=== PATIENT | female | born 1955 | race Caucasian/White ===

== ENCOUNTER → 2018-09-24 07:24 | Outpatient (CLI) | payer OTHER, SELFPAY ==
[2018-09-24 09:55] LABS: Add Manual Diff / Slide Review NO; Basophils Absolute Auto 0 /uL (0-100); Basophils Percent Auto 0.6 % (0-2); Eosinophils Absolute Auto 200 /uL (0-450); Eosinophils Percent Auto 4.6 % (2-4); Hematocrit 40.3 % (36-46); Hemoglobin 13.7 g/dL (12.0-16.0); Lymphocytes Absolute Auto 1600 /uL (1100-4500); Lymphocytes Percent Auto 32.1 % (25-40); Mean Corpuscular Hemoglobin 30.2 PG (26-34); Mean Corpuscular Volume 88.9 fL (80-100); Monocytes Absolute Auto 400 /uL (0-900); Monocytes Percent Auto 7.4 % (3-14); Neutrophils Absolute Auto 2800 /uL (1500-7000); Neutrophils Percent Auto 55.3 % (50-75); Platelet Count 224 X10^3/uL (150-400); Red Blood Cell Count 4.53 X10^6/uL (4.0-5.2); White Blood Cell Count 5.1 X10^3/uL (4.5-11.0)
[2018-09-24 10:37] LABS: Alanine Aminotransferase 24 IU/L (9-52); Albumin 4.3 g/dL (3.5-5.0); Albumin Globulin Ratio 1.7 (1.0-2.8); Alkaline Phosphatase 94 U/L (38-126); Aspartate Aminotransferase 24 IU/L (14-36); Bilirubin Total 0.6 mg/dL (0.2-1.3); Blood Urea Nitrogen 14 mg/dL (7-17); Calcium 9.6 mg/dL (8.4-10.2); Carbon Dioxide 28 mmol/L (22-32); Chloride 104 mmol/L (98-107); Cholesterol 217 mg/dL (140-199); Estimated Glomerular Filt Rate > 60.0 mL/min (>60); Globulin 2.6 g/dL (1.7-4.1); Glucose 78 mg/dL (80-110); HDL Cholesterol 43 mg/dL (40-60); HEMOLYSIS < 15 (0-50); LDL Cholesterol Calculated 148 mg/dL (<100); Potassium 4.2 mmol/L (3.4-5.1); Sodium 139 mmol/L (137-145); Total Protein 6.9 g/dL (6.3-8.2); Triglycerides 129 mg/dL (35-150)
[2018-09-24 10:54] LABS: TSH w/ Reflex to FT4 1.48 uIU/mL (0.47-4.68)
== END ==
PROVIDERS: Nurse Practitioner; PCP Family Medicine; Visit Provider Family Medicine
DX: R25.2 Cramp and spasm (principal)
CPT/HCPCS: 36415; 80053; 80061; 84443; 85025

== ENCOUNTER 2019-02-21 15:25 | Emergency (ER) | payer OTHER, SELFPAY ==
[2019-02-21 15:43] VITALS: BP 159/93; PULSE 85; RESP 18; TEMP 36.9; O2SAT 98; BMI 28.3
--- NOTE | 2019-02-21 15:46 | DI.RAD.S_ITS ---
PROCEDURE: XR WRIST LT MIN 3V INDICATIONS: fall with hand /wrist pain TECHNIQUE: 4 views of the wrist were acquired. COMPARISON: None. FINDINGS: Bones: No fractures or dislocations. No suspicious bony lesions. First CMC and triscaphe joint degeneration Soft tissues: No suspicious soft tissue calcifications. IMPRESSION: No fracture. If the patient's symptoms do not improve recommend followup radiographs in 10 days to assess for healing sclerosis/occult injury. Degenerative changes as above. Dictated by: Seamus Taylor M.D. on 02/21/2019 at 16:30 Approved by: Seamus Taylor M.D. on 02/21/2019 at 16:32
--- NOTE | 2019-02-21 15:46 | DI.RAD.S_ITS ---
PROCEDURE: XR HAND LT MIN 3V INDICATIONS: fall with hand /wrist pain TECHNIQUE: 3 views of the hand(s) acquired. COMPARISON: None. FINDINGS: Bones: No fractures or dislocations. Carpal bones are normally aligned. No suspicious bony lesions. First CMC and triscaphe joint degeneration. Prominent lucencies seen at the DIP joint of the index finger. Diffuse interphalangeal joint degeneration. Soft tissues: No suspicious soft tissue calcifications. IMPRESSION: No fracture. Degenerative changes as above. Dictated by: Seamus Taylor M.D. on 02/21/2019 at 16:28 Approved by: Seamus Taylor M.D. on 02/21/2019 at 16:30
--- NOTE | 2019-02-21 17:50 | ED_ITS ---
HPI - Extremity Injury (Upper) <MISTI Castillo - Last Filed: 02/21/19 22:19> General Chief Complaint: Extremity Injury, Upper Stated Complaint: FALL LEFT ARM SORE PAIN Time Seen by Provider: 02/21/19 17:43 Source: patient Mode of arrival: ambulatory Limitations: no limitations History of Present Illness HPI narrative: 63-year-old female presents emergency department complaining of 5/10 left hand pain with swelling and bruising. Patient states she fell on an outstretched hand. She describes the pain as dull aching pain worse with movement and better with immobilization. She states the pain is localized to the left thumb. She denies fevers, head trauma, shortness of breath, chest pain, elbow pain, shoulder pain, abdominal pain, nausea, vomiting, or loss of consciousness. Related Data Home Medications Medication Instructions Recorded Confirmed omeprazole 40 mg capsule,delayed 20 mg PO .QOD tab 09/23/18 10/11/18 release Previous Rx's Medication Instructions Recorded atorvastatin 10 mg tablet 10 mg PO BEDTIME #30 tab 09/26/18 losartan 100 mg tablet 100 mg PO Q DAY #90 tab 10/11/18 varicella-zoster gE-AS01B (PF) 50 0.5 ml IM ONCE #1 each 10/11/18 mcg/0.5 mL IM susp, kit Allergies Allergy/AdvReac Type Severity Reaction Status Date / Time Penicillins [PENICILLINS] Allergy Unknown Verified 02/21/19 15:43 Review of Systems <MISTI Castillo - Last Filed: 02/21/19 22:19> Review of Systems Narrative: REVIEW OF SYSTEMS: GENERAL: Denies fever or chills. HENT: No head trauma. EYES: No double vision or vision loss. CARDIOVASCULAR: No chest pain or syncope. RESPIRATORY: No shortness of breath or cough. GASTROINTESTINAL: No nausea, vomiting, diarrhea, or constipation. GENITOURINARY: No flank pain or dysuria. MUSCULOSKELETAL: Complains of wrist pain, see HPI. INTEGUMENTARY: No rash, lesions, or pruritus. NEURO: No numbness, tingling. PSYCH: No behavior or mood changes. PFSH <MISTI Castillo - Last Filed: 02/21/19 22:19> Medical History Back problem (Chronic ~2016) Carpal tunnel syndrome (Chronic ~1993) Foot pain (Chronic ~2005) Migraines (Chronic) Surgical History Anesthesia (Resolved) Status post tonsillectomy and adenoidectomy (~1972) Family History (Updated 02/19/18 @ 21:57 by Maribel Alex) Brother Age: 62 Osteoarthritis Brother Age: 61 Arthritis Mother Age: 88 Arthritis Congestive heart failure Heart disease Sister Age: 66 Lupus Sister Age: 63 Osteoarthritis Father Cancer Social History Smoking Status: Never smoker Family History Brother Age: 62 Osteoarthritis Brother Age: 61 Arthritis Mother Age: 88 Arthritis Congestive heart failure Heart disease Sister Age: 66 Lupus Sister Age: 63 Osteoarthritis Father Cancer Social History Smoking Status: Never smoker Exam <MISTI Castillo - Last Filed: 02/21/19 22:19> Initial Vital Signs Initial Vital Signs: Vital Signs Temperature 98.4 F 02/21/19 15:43 Pulse Rate 85 02/21/19 15:43 Respiratory Rate 18 02/21/19 15:43 Blood Pressure 159/93 H 02/21/19 15:43 Pulse Oximetry 98 02/21/19 15:43 PHYSICAL EXAMINATION: GENERAL: Well groomed, alert, and cooperative. Answers questions promptly and appropriately. Vital signs noted. HENT: Normocephalic, atraumatic. EYES: Symmetrical, sclera white, no periorbital swelling. CARDIOVASCULAR: S1 and S2 sounds normal. Regular rate and rhythm, no murmurs, clicks, or bruits. No pedal edema. RESPIRATORY: Normal respiratory rate, trachea midline, airway patent. No stridor, nasal flaring or accessory muscle use. Lungs are clear in all araya. MUSCULOSKELETAL: Tenderness to palpation of proximal thumb and radial-palmar aspect of hand. Ecchymosis is noted to palmar aspect of proximal thumb and small ecchymotic area of left wrist. No erythema, no laceration. Equal underwater photographer strength bilaterally Full range of motion of the wrist. No tenderness to shoulder or elbows. Normal gait and coordination. Equal tone and mass bilaterally. No spinal tenderness or deformities. EXTREMITIES: CMS intact. No pedal edema. SKIN: Warm, dry, soft, appropriate color for ethnicity. No lesions, rashes, or wounds. NEURO: Alert and Oriented X 3. No sensory deficits. PSYCH: Appropriate affect and mood. <Tamia Yost DO - Last Filed: 02/23/19 19:22> Initial Vital Signs Initial Vital Signs: Vital Signs Temperature 98.4 F 02/21/19 15:43 Pulse Rate 85 02/21/19 15:43 Respiratory Rate 18 02/21/19 15:43 Blood Pressure 159/93 H 02/21/19 15:43 Pulse Oximetry 98 02/21/19 15:43 Procedures <MISTI Castillo - Last Filed: 02/21/19 22:19> Orthopedic Splinting/Casting Injury #1: Side: left Upper Extremity Injury Location: wrist Upper Extremity Immobilizer: wrist splint Post splinting neuro exam: intact Post splinting vascular exam: intact Placed by: Nursing Course <MISTI Castillo - Last Filed: 02/21/19 22:19> Course Course Narrative: A Velcro splint was applied to left wrist. Orders Ordered: ED Orders 02/21/19 15:46 XR hand LT min 3V Stat XR wrist LT min 3V Stat Vital Signs Vital signs: Vital Signs - 8 hr 02/21/19 15:43 02/21/19 18:10 Temperature 98.4 F Pulse Rate 85 85 Respiratory Rate 18 18 Blood Pressure 159/93 H 140/80 Pulse Oximetry 98 99 <Tamia Yost DO - Last Filed: 02/23/19 19:22> Orders Ordered: ED Orders 02/21/19 15:46 XR hand LT min 3V Stat XR wrist LT min 3V Stat Vital Signs Vital signs: Vital Signs - 8 hr 02/21/19 15:43 02/21/19 18:10 Temperature 98.4 F Pulse Rate 85 85 Respiratory Rate 18 18 Blood Pressure 159/93 H 140/80 Pulse Oximetry 98 99 MDM - Extremity Injury (Upper) <MISTI Castillo - Last Filed: 02/21/19 22:19> Medical Records Attestation: I reviewed the patient's medical records. Lab Data Attestation: I reviewed the patient's lab results. Imaging Data L wrist pain: Radiologist's impression: [address] [address] XRay Report Signed Patient: Christy Stallworth R#: [id number] : [id number]:[id number] Age/Sex: 63 / FDate of Service: 02/21/19 Loc: ED Accession Number: [id number] Procedure: XR wrist LT min 3V Ordering Provider: Tamia Yost D.O. PROCEDURE: XR WRIST LT MIN 3V INDICATIONS: fall with hand /wrist pain TECHNIQUE: 4 views of the wrist were acquired. COMPARISON: None. FINDINGS: Bones: No fractures or dislocations. No suspicious bony lesions. First CMC and triscaphe joint degeneration Soft tissues: No suspicious soft tissue calcifications. IMPRESSION: No fracture. If the patient's symptoms do not improve recommend followup radiographs in 10 days to assess for healing sclerosis/occult injury. Degenerative changes as above. Dictated by: Seamus Taylor M.D. on 02/21/2019 at 16:30 Approved by: Seamus Taylor M.D. on 02/21/2019 at 16:32 L Hand pain: Radiologist's impression: [address] [place] [id number] XRay Report Signed Patient: Christy Stallworth R#: [id number] : [id number]:[id number] Age/Sex: 63 / FDate of Service: 02/21/19 Loc: ED Accession Number: [id number] Procedure: XR hand LT min 3V Ordering Provider: Tamia Yost D.O. PROCEDURE: XR HAND LT MIN 3V INDICATIONS: fall with hand /wrist pain TECHNIQUE: 3 views of the hand(s) acquired. COMPARISON: None. FINDINGS: Bones: No fractures or dislocations. Carpal bones are normally aligned. No suspicious bony lesions. First CMC and triscaphe joint degeneration. Prominent lucencies seen at the DIP joint of the index finger. Diffuse interphalangeal joint degeneration. Soft tissues: No suspicious soft tissue calcifications. IMPRESSION: No fracture. Degenerative changes as above. Dictated by: Seamus Taylor M.D. on 02/21/2019 at 16:28 Approved by: Seamus Taylor M.D. on 02/21/2019 at 16:30 MDM Narrative Medical decision making narrative: Differential includes hand sprain (mechanism of injury, ecchymosis, tenderness with palpation, pain relief with splinting), fracture (less likely due to negative x-ray), and contusion as evidence by exam. Patient was encouraged to follow up within 1-2 weeks for re-evaluation of symptoms continue. Return precautions were given. Discharge Plan Departure Patient Disposition: Home Clinical Impression: Acute wrist pain Qualifiers: Laterality: left Qualified Code(s): M25.532 - Pain in left wrist Discharge Date/Time: 02/21/19 18:10 Instructions: DI for Wrist Sprain Activity Restrictions/Additional Instructions: Thank you for entrusting me with your care today. As discussed, your x-rays are negative for fractures. You may leave this splint in place for pain. Please remove this multiple times during the day and move your wrist around so it does not become stiff. Follow up with your primary care provider in the next 10-14 days for repeat x-ray. Return to the emergency department if you develop chest pain, shortness of breath, syncope, or other concerning symptoms. Prescriptions: No Action atorvastatin 10 mg tablet 10 mg PO BEDTIME Qty: 30 RF: 5 Shingrix (PF) 50 mcg/0.5 mL suspension for reconstitution 0.5 ml IM ONCE Qty: 1 RF: 0 losartan [Cozaar] 100 mg tablet 100 mg PO Q DAY Qty: 90 RF: 3 omeprazole 40 mg capsule,delayed release(DR/EC) 20 mg PO .QOD RF: 0 Referrals: Brandon Koehler MD [Primary Care Provider] -
[2019-02-21 18:10] VITALS: BP 140/80; PULSE 85; RESP 18; O2SAT 99
== END 2019-02-21 18:10 | disposition home or self-care (01) ==
PROVIDERS: Emergency Provider Nurse Practitioner; PCP Family Medicine
DX: M25.532 Pain in left wrist (principal); W19.XXXA Unspecified fall, initial encounter
CPT/HCPCS: 73110; 73130; 99282; 99283

== ENCOUNTER 2019-03-03 06:23 | Day surgery (SDC) | payer OTHER, SELFPAY ==
[2019-03-03] MEDS: SODIUM CHLORIDE 0.9% 1,000 ML 200 ML IV (07:15)
[2019-03-03 07:18] VITALS: BP 142/76; PULSE 77; RESP 14; TEMP 36.3; O2SAT 98; BMI 28.8
--- NOTE | 2019-03-03 07:36 | PM.HP.1 ---
History of Present Illness History of Present Illness Date Patient Seen: 03/03/19 Time Patient Seen: 07:36 Chief complaint: [id number] Narrative: Patient presents for colorectal screening. They had a previous colonoscopy 3 yrs ago significant for a polyp. On further history denies any recent gastrointestinal symptoms. No nausea, vomiting, abdominal pain, loss of appetite, unexplained weight loss, change in bowel habits, diarrhea, constipation, melena, hematochezia, or bright red blood per rectum. Patient History Medical History Arthritis (Acute) Back problem (Chronic ~2016) Carpal tunnel syndrome (Chronic ~1993) Foot pain (Chronic ~2005) Hypertension (Acute) Impaired vision (Acute) Migraines (Chronic) Surgical History Anesthesia (Resolved) History of colonoscopy (Acute) Status post tonsillectomy and adenoidectomy (~1972) Family History Brother Age: 62 Osteoarthritis Brother Age: 61 Arthritis Mother Age: 88 Arthritis Congestive heart failure Heart disease Sister Age: 66 Lupus Sister Age: 63 Osteoarthritis Father Cancer Social History household members: spouse Smoking Status: Never smoker Family & Social History Family History Brother Age: 62 Osteoarthritis Brother Age: 61 Arthritis Mother Age: 88 Arthritis Congestive heart failure Heart disease Sister Age: 66 Lupus Sister Age: 63 Osteoarthritis Father Cancer Social History: household members spouse Tobacco & Substance use: Smoking Status Never smoker Substance Use Type does not use Meds Home Medications and Allergies Home Medications Medication Instructions Recorded Confirmed Type losartan 100 mg tablet 100 mg PO Q DAY #90 tab 10/11/18 03/03/19 Rx varicella-zoster gE-AS01B (PF) 50 0.5 ml IM ONCE #1 each 10/11/18 Rx mcg/0.5 mL IM susp, kit Allergies Allergy/AdvReac Type Severity Reaction Status Date / Time Penicillins [PENICILLINS] Allergy Intermediate Hives Verified 03/03/19 07:09 Review of Systems Review of Systems ROS Unobtainable: All systems reviewed & are unremarkable except as noted in HPI and below Exam Vital Signs (past 8 hours): - 03/03/19 07:18 Temperature 97.3 F L Pulse Rate 77 Respiratory Rate 14 Blood Pressure 142/76 H Pulse Oximetry 98 Oxygen Delivery Method Room Air Narrative Exam Narrative: General-adult female no acute distress, well nourished HEENT-moist mucous membranes, no scleral icterus Neck-supple with full range of motion, no lymphadenopathy Chest- no labored respirations, clear to auscultation bilaterally Cardiac-regular rate and rhythm Abdomen-soft, nontender, non distended Extremities-no edema, warm well perfused Neurological-alert and oriented x 3. No focal deficits Skin-normal temperature and turgor, no rashes or ulcers Assessment & Plan Assessment and plan (1) Screening for colon cancer: Current visit: Yes Status: Acute Assessment & Plan narrative: Patient is requiring colorectal screening. Colonoscopy is recommended. Technical details were discussed. Risks, benefits, alternatives explained. Risks including but not limited to sedation, aspiration, bleeding, pain, missed lesion, incomplete examination, need for further radiographic studies, colonic perforation, need for major abdominal surgery, and all attendant risks major surgery were discussed at length. All questions were answered to their satisfaction, and they voiced understanding.
[2019-03-03] MEDS: MIDAZOLAM 5 MG/5 ML VIAL IV (08:20)
[2019-03-03] MEDS: fentaNYL 250 MCG/5 ML INJ IV (08:20)
[2019-03-03 08:30] VITALS: BP 99/47; PULSE 68; RESP 16; TEMP 36.6; O2SAT 95
--- NOTE | 2019-03-03 08:31 | PM.OP.ENDO ---
Operative Date/Time/Diagnoses Date of procedure: 03/03/19 Time of procedure: 08:31 Pre-op diagnosis: screening colonoscopy Post-op diagnosis: same Procedure & Clinicians Study performed: Colonoscopy Same procedure as scheduled: Yes Indications: 63-year-old female with a colonoscopy 3 years ago that demonstrated a polyp returns for screening colonoscopy Surgeon: Alonso Sharma Procedure Notes SCOAP/Timeout: Performed Procedure in detail: A digital rectal exam was performed that demonstrated external hemorrhoids no internal masses. The scope was carefully inserted into the rectum and advanced to the sigmoid colon. A significant amount of diverticular disease was here and I was unable to pass the adult endoscope. It was replaced with a pediatric colonoscope which was then navigated through the remainder of the colon. The ileocecal valve was reached. The scope was then slowly withdrawn. The colon was notable only for extensive diverticulosis through the right and left colon. There are no masses. The scope was retroflexed within the rectum and demonstrated grade 1 internal hemorrhoids. The scope was then removed Scope withdrawal time: 7 Sedation minutes: 27 Findings: diverticulosis Specimen(s): none sent Complications: none Impression: Diverticulosis Post-procedure Recommendations: Colonscopy in 10 years Disposition: same day surgery
[2019-03-03 08:35] VITALS: BP 102/52; PULSE 69; RESP 16; O2SAT 95
[2019-03-03 08:40] VITALS: BP 106/57; PULSE 68; RESP 16; O2SAT 96
[2019-03-03 08:44] VITALS: BP 116/64; PULSE 66; O2SAT 99
[2019-03-03 09:03] VITALS: BP 104/68; PULSE 69; RESP 16; TEMP 36.7
== END 2019-03-03 09:05 | disposition home or self-care (01) ==
PROVIDERS: PCP Family Medicine; Visit Provider Surgery
PROC: 0DJD8ZZ Inspection of Lower Intestinal Tract, Via Natural or Artificial Opening Endoscopic (ICD-10-PCS; CPT 45378; principal; 2019-03-03 07:45)
DX: Z86.010 Personal history of colon polyps (principal); K57.30 Diverticulosis of large intestine without perforation or abscess without bleeding; K64.0 First degree hemorrhoids
CPT/HCPCS: 45378; 99152; J2250; J3010

== ENCOUNTER → 2019-03-25 07:05 | Outpatient (CLI) | payer OTHER, SELFPAY ==
[2019-03-25 08:49] LABS: Hemoglobin A1C% w Est Avg Glu 5.2 % (4.0-6.0)
[2019-03-25 08:50] LABS: Add Manual Diff / Slide Review NO; Basophils Absolute Auto 0 /uL (0-100); Basophils Percent Auto 0.5 % (0-2); Eosinophils Absolute Auto 200 /uL (0-450); Eosinophils Percent Auto 4.2 % (2-4); Hematocrit 41.4 % (36-46); Hemoglobin 14.1 g/dL (12.0-16.0); Lymphocytes Absolute Auto 1600 /uL (1100-4500); Lymphocytes Percent Auto 27.7 % (25-40); Mean Corpuscular HGB Conc 34.1 % (30-36); Mean Corpuscular Hemoglobin 30.3 PG (26-34); Monocytes Absolute Auto 500 /uL (0-900); Monocytes Percent Auto 8.1 % (3-14); Neutrophils Absolute Auto 3400 /uL (1500-7000); Neutrophils Percent Auto 59.5 % (50-75); Platelet Count 221 X10^3/uL (150-400); Red Blood Cell Count 4.66 X10^6/uL (4.0-5.2); White Blood Cell Count 5.7 X10^3/uL (4.5-11.0)
[2019-03-25 08:52] LABS: Alanine Aminotransferase 248 IU/L (9-52); Albumin 4.6 g/dL (3.5-5.0); Albumin Globulin Ratio 1.6 (1.0-2.8); Alkaline Phosphatase 140 U/L (38-126); Aspartate Aminotransferase 68 IU/L (14-36); Bilirubin Total 0.9 mg/dL (0.2-1.3); Blood Urea Nitrogen 16 mg/dL (7-17); Calcium 9.8 mg/dL (8.4-10.2); Carbon Dioxide 29 mmol/L (22-32); Chloride 100 mmol/L (98-107); Cholesterol 209 mg/dL (140-199); Estimated Glomerular Filt Rate > 60.0 mL/min (>60); Globulin 2.8 g/dL (1.7-4.1); Glucose 88 mg/dL (80-110); HDL Cholesterol 45 mg/dL (40-60); HEMOLYSIS < 15 (0-50); LDL Cholesterol Calculated 139 mg/dL (<100); Potassium 4.1 mmol/L (3.4-5.1); Sodium 141 mmol/L (137-145); Total Protein 7.4 g/dL (6.3-8.2); Triglycerides 123 mg/dL (35-150)
[2019-03-25 09:39] LABS: Thyroid Stimulating Hormone 2.32 uIU/mL (0.47-4.68)
== END ==
PROVIDERS: PCP Family Medicine; Visit Provider Family Medicine
DX: E13.9 Other specified diabetes mellitus without complications (principal); E78.5 Hyperlipidemia, unspecified; I10 Essential (primary) hypertension
CPT/HCPCS: 36415; 80053; 80061; 83036; 84443; 85025

== ENCOUNTER → 2019-03-26 08:30 | Outpatient (CLI) | payer OTHER, SELFPAY ==
--- NOTE | 2019-03-26 08:31 | DI.US.S_ITS ---
PROCEDURE: US ABDOMEN COMPLETE INDICATIONS: ABNORMAL LIVER FUNCTION TESTS TECHNIQUE: Real-time scanning was performed of the abdominal and retroperitoneal organs, with image documentation. COMPARISON: [facility], US, ABDOMEN COMPLETE, 05/16/2017, 15:48. FINDINGS: Liver: Liver is diffusely increased in echogenicity. No focal hepatic abnormalities identified. Normal hepatic size. Gallbladder: 1.2 cm mobile gallstone and gallbladder wall is normal at 2 mm Biliary ducts: Intrahepatic bile ducts are non-dilated. Extrahepatic bile duct caliber measures 5.0 mm. Normal is 6-7 mm or less in diameter, or 10 mm or less post-cholecystectomy. Pancreas: Visualized portions of the pancreas are sonographically normal. Spleen: Spleen is normal in size and homogeneous in echotexture. Kidneys: Kidneys are normal in size and echotexture. Right kidney measures 10.9 cm long; left kidney measures 10.4 cm long. No hydronephrosis or nephrolithiasis. No solid masses. Aorta: Visualized aorta is normal in caliber at less than 3 cm. Iliacs: Proximal common iliac arteries are normal in caliber at less than 2.5 cm. IVC: Intrahepatic inferior vena cava is patent. Miscellaneous: No free abdominal fluid. IMPRESSION: 1. Mildly increased hepatic echogenicity noted possibly related to hepatic steatosis but other sources of hepatocellular disease cannot be excluded. Recommend clinical correlation. 2. Cholelithiasis without acute cholecystitis. Dictated by: Teddy TEMPLETON Interpreted: Gaetano Medrano MD on 03/26/2019 at 10:39 Approved by: Gaetano Medrano M.D. on 03/26/2019 at 13:06
== END ==
PROVIDERS: PCP Family Medicine; Visit Provider Family Medicine
DX: R94.5 Abnormal results of liver function studies (principal); K80.20 Calculus of gallbladder without cholecystitis without obstruction
CPT/HCPCS: 76700

== ENCOUNTER → 2019-03-28 12:13 | Outpatient (CLI) | payer OTHER, SELFPAY ==
[2019-03-28 14:11] LABS: Alanine Aminotransferase 121 IU/L (9-52); Albumin 4.6 g/dL (3.5-5.0); Albumin Globulin Ratio 1.8 (1.0-2.8); Alkaline Phosphatase 125 U/L (38-126); Amylase 60 U/L (30-110); Aspartate Aminotransferase 31 IU/L (14-36); Bilirubin Total 0.7 mg/dL (0.2-1.3); Bilirubin Unconjugated 0.6 mg/dL (0.0-1.1); Globulin 2.6 g/dL (1.7-4.1); HEMOLYSIS < 15 (0-50); Lipase 89 U/L (23-300); Total Protein 7.2 g/dL (6.3-8.2)
[2019-04-01 14:41] LABS: Urea Breath Test >18YRS NOT DETECTED
[2019-04-02 08:23] LABS: Hepatitis A Antibody IgM NONREACTIVE; Hepatitis Acute Panel Interp 0.02; Hepatitis B Core Antibody IgM NONREACTIVE; Hepatitis B Surface Antigen NONREACTIVE; Hepatitis C Antibody NONREACTIVE
== END ==
PROVIDERS: PCP Family Medicine; Visit Provider Family Medicine
DX: R94.5 Abnormal results of liver function studies (principal)
CPT/HCPCS: 36415; 80074; 80076; 82150; 83013; 83690

== ENCOUNTER 2019-05-06 12:41 | Day surgery (SDC) | payer OTHER, SELFPAY ==
--- NOTE | 2019-05-06 | PATH_ITS ---
[facility] Accession Number: [id number] . 01 Material submitted: . PART A: duodenum - DUODENAL BIOPSIES PART B: gastrointestinal site - GASTRIC ANTRUM BIOPSIES PART C: gastrointestinal site - GASTRIC ULCER BIOPSY PART D: esophagus - DISTAL ESOPHAGUS BIOPSIES PART E: esophagus - MID-ESOPHAGUS BIOPSIES . 02 Diagnosis: A. Duodenum, Biopsies: Duodenal mucosa with no diagnostic abnormality. Negative for active inflammation, features of sprue, dysplasia, or malignancy. . B. Gastric Antrum, Biopsies: Gastric antral mucosa with mild chronic inflammation and features of reactive gastropathy. Negative for Helicobacter organisms by immunohistochemistry. Negative for intestinal metaplasia. Negative for dysplasia and malignancy. . C. Gastric Ulcer, Biopsy: Gastric body mucosa with mild chronic inflammation; please see comment. Negative for Helicobacter organisms by immunohistochemistry. Negative for intestinal metaplasia. Negative for dysplasia or malignancy. Additional step sections examined. . D-E: Distal, Mid Esophagus, Biopsies: Squamous mucosa with no diagnostic abnormality. Intraepithelial eosinophils are not increased. Negative for dysplasia and malignancy. [facility] 05/09/2019 1541 Local . 02 Comment: Part C: The endoscopic impression of a gastric ulcer is noted; however, there are no histologic features which correlate with that impression. Additional deeper levels are examined. . 02 Electronically signed: . Miles Lacey MD, PhD, Pathologist NPI- [id number] . 01 Gross description: . Part A: DUODENAL BIOPSIES: Received in formalin is 1 fragment(s) of zuniga, soft tissue measuring 0.3 x 0.2 x 0.2 cm submitted entirely in 1 cassette(s) Part B: GASTRIC ANTRUM BIOPSIES: Received in formalin are 2 fragment(s) of zuniga, soft tissue measuring 0.1 x 0.1 x 0.1 cm to 0.2 x 0.1 x 0.1 cm submitted entirely in 1 cassette(s) Part C: GASTRIC ULCER BIOPSY: Received in formalin are 2 fragment(s) of zuniga, soft tissue measuring 0.1 x 0.1 x 0.1 cm to 0.2 x 0.1 x 0.1 cm submitted entirely in 1 cassette(s) Part D: DISTAL ESOPHAGUS BIOPSIES: Received in formalin are 2 fragment(s) of zuniga, soft tissue measuring 0.2 x 0.2 x 0.1 cm to 0.3 x 0.2 x 0.2 cm submitted entirely in 1 cassette(s) Part E: MID-ESOPHAGUS BIOPSIES: Received in formalin is 1 fragment(s) of zuniga, soft tissue measuring 0.3 x 0.1 x 0.1 cm submitted entirely in 1 cassette(s) /[facility] 05/06/2019 2117 Local . 02 Microscopic: . Part B: An immunohistochemical stain is performed to evaluate for Helicobacter organisms, and is negative. A control stain shows appropriate reactivity. . Part C: An immunohistochemical stain is performed to evaluate for Helicobacter organisms, and is negative. A control stain shows appropriate reactivity. . * This test was developed and its performance characteristics determined by [employer]. It has not been cleared or approved by the U.S. Food and Drug Administration. The FDA has determined that such clearance or approval is not necessary. This test is used for clinical purposes. It should not be regarded as investigational or for research. . 02 Pathologist provided ICD-10: K21.9, K29.70 . 02 CPT . 580947, 780331, 967204, 426076, 979168, [id number] Performed at: 01 [facility] [address] [facility], [place], [place] [id number] MD Chirag Kim MD Phone: [phone] Performed at: 02 [facility] [address] [place], [place] [id number] MD Mag Bernard MD Phone: [phone]
[2019-05-06 13:03] VITALS: BP 154/80; PULSE 76; RESP 15; TEMP 36.3; O2SAT 99
[2019-05-06 13:04] VITALS: BMI 28.5
[2019-05-06] MEDS: SODIUM CHLORIDE 0.9% 1,000 ML 200 ML IV (13:19)
--- NOTE | 2019-05-06 13:58 | PM.PREOP ---
Pre-operative Note Interval Note History & Physical reviewed/Exam performed by Physician: Yes Changes to H&P: No ASA Class (for procedural sedation): II
[2019-05-06] MEDS: MIDAZOLAM 5 MG/5 ML VIAL IV (14:18)
[2019-05-06] MEDS: fentaNYL 250 MCG/5 ML INJ IV (14:18)
--- NOTE | 2019-05-06 14:30 | PM.OP.ENDO ---
Operative Date/Time/Diagnoses Date of procedure: 05/06/19 Time of procedure: 14:30 Pre-op diagnosis: Early satiety, abdominal pain, reflux symptoms Post-op diagnosis: other (Multiple shallow gastric ulcers, low-grade esophagitis) Procedure & Clinicians Study performed: Esophagogastric duodenoscopy with cold forceps biopsies of duodenum, stomach, gastric ulcer, GE junction, and esophagus Same procedure as scheduled: Yes Indications: Epigastric pain, early satiety, Surgeon: Kaitlynn Chopra Procedure Notes SCOAP/Timeout: Performed Procedure in detail: The patient was brought to the room and placed in left lateral decubitus position with all bony prominences padded. A time-out was performed and then the patient was given procedural sedation starting with [4] mg of Versed and [100] mcg of fentanyl. Vitals were monitored throughout the procedure and remained stable. A bite block was placed. Once adequately sedated the procedure was begun. A gastroscope was passed through the bite block and over the tongue, and easily passed into the esophagus without incident. A tubular view was gained of the esophagus and the scope was passed down the esophagus and into the stomach in the usual fashion. In the stomach moderate erosions consistent with healing ulcers in the setting of gastritis were seen along the wall of the mid stomach and antrum. The scope was popped through the pylorus and into the 1st part of the duodenum, and flexed around the corner into the 2nd part of the duodenum. The duodenum appeared normal without any ulcers or erosions, or any duodenitis. Biopsies were taken in the 1st and 2nd part of the duodenum. The scope was then retracted back into the stomach and biopsies were taken of the gastric erosions and antral gastritis. The scope was then retroflexed and a Hill grade 4 hiatal hernia was seen. The scope was then retracted back into the esophagus and the Z-line was seen at about 35 cm from the incisors. Biopsies were taken in the distal esophagus. There was evidence of some mild esophagitis seen in the lower and mid esophagus and biopsies were taken there is well. The scope was then withdrawn from the esophagus through the mouth without incident, bite block was removed, and the patient was awakened from anesthesia and transferred to the postanesthesia care unit in stable condition. Findings: gastric ulcer (Multiple, small, healing, without visible vessel or bleeding), gastritis (Moderate) and hiatal hernia (Hill grade 4) Specimen(s): other (Biopsies of duodenal mucosa, gastric antrum, gastric ulcer, distal esophagus, and midesophagus) Complications: none Post-procedure Recommendations: Other recommendation (Follow-up depending on pathology results, double-dose PPI) Follow up: as needed Disposition: PACU
[2019-05-06 14:34] VITALS: PULSE 76; RESP 22; TEMP 36.4; O2SAT 97
[2019-05-06 14:39] VITALS: BP 140/73; PULSE 77; RESP 20; O2SAT 95
[2019-05-06 14:44] VITALS: BP 139/75; PULSE 77; RESP 20; O2SAT 94
[2019-05-06 14:48] VITALS: BP 127/66; PULSE 75; RESP 22; TEMP 36.3; O2SAT 98
[2019-05-06 15:04] VITALS: BP 143/80; PULSE 69; RESP 20; TEMP 36.2; O2SAT 95
== END 2019-05-06 15:08 | disposition home or self-care (01) ==
PROVIDERS: Family Provider Family Medicine; PCP Family Medicine; Visit Provider Surgery
PROC: 0DJ08ZZ Inspection of Upper Intestinal Tract, Via Natural or Artificial Opening Endoscopic (ICD-10-PCS; CPT 43235; principal; 2019-05-06 14:00)
DX: K21.9 Gastro-esophageal reflux disease without esophagitis (principal); R68.81 Early satiety; I10 Essential (primary) hypertension; K29.70 Gastritis, unspecified, without bleeding; K22.10 Ulcer of esophagus without bleeding; K44.9 Diaphragmatic hernia without obstruction or gangrene
CPT/HCPCS: 43239; J2250; J3010

== ENCOUNTER → 2020-01-13 09:49 | Outpatient (CLI) | payer MEDICARE, SELFPAY ==
[2020-01-13 10:55] LABS: Add Manual Diff / Slide Review NO; Basophils Absolute Auto 0 /uL (0-100); Basophils Percent Auto 0.7 % (0-2); Eosinophils Absolute Auto 200 /uL (0-450); Eosinophils Percent Auto 3.1 % (2-4); Hematocrit 41.4 % (36-46); Hemoglobin 14.1 g/dL (12.0-16.0); Lymphocytes Absolute Auto 1400 /uL (1100-4500); Lymphocytes Percent Auto 20.5 % (25-40); Mean Corpuscular Hemoglobin 30.3 PG (26-34); Monocytes Absolute Auto 500 /uL (0-900); Monocytes Percent Auto 7.2 % (3-14); Neutrophils Absolute Auto 4500 /uL (1500-7000); Neutrophils Percent Auto 68.5 % (50-75); Platelet Count 217 X10^3/uL (150-400); Red Blood Cell Count 4.65 X10^6/uL (4.0-5.2); White Blood Cell Count 6.6 X10^3/uL (4.5-11.0)
[2020-01-13 11:14] LABS: Alanine Aminotransferase 58 IU/L (<35); Albumin 4.6 g/dL (3.5-5.0); Albumin Globulin Ratio 1.6 (1.0-2.8); Alkaline Phosphatase 132 U/L (38-126); Amylase 81 U/L (30-110); Aspartate Aminotransferase 49 IU/L (14-36); BUN Creatinine Ratio 18.5 (6-22); Bilirubin Total 0.7 mg/dL (0.2-1.3); Blood Urea Nitrogen 15 mg/dL (7-17); Calcium 10.2 mg/dL (8.4-10.2); Carbon Dioxide 27 mmol/L (22-32); Chloride 105 mmol/L (98-107); Estimated Glomerular Filt Rate > 60.0 mL/min (>60); Globulin 2.8 g/dL (1.7-4.1); Glucose 100 mg/dL (80-110); HEMOLYSIS < 15 (0-50); Lipase 100 U/L (23-300); Potassium 4.2 mmol/L (3.4-5.1); Sodium 139 mmol/L (137-145); Total Protein 7.4 g/dL (6.3-8.2)
[2020-01-13 11:44] LABS: TSH w/ Reflex to FT4 1.61 uIU/mL (0.47-4.68)
[2020-02-05 11:40] LABS: Urea Breath Test >18YRS NEGATIVE
== END ==
PROVIDERS: Family Provider Family Medicine; PCP Family Medicine; Referring Provider Nurse Practitioner; Visit Provider Nurse Practitioner
DX: Z13.29 Encounter for screening for other suspected endocrine disorder (principal); R10.9 Unspecified abdominal pain; R14.0 Abdominal distension (gaseous); I10 Essential (primary) hypertension; R10.11 Right upper quadrant pain
CPT/HCPCS: 36415; 80053; 82150; 83013; 83690; 84443; 85025

== ENCOUNTER → 2020-01-19 07:44 | Outpatient (CLI) | payer MEDICARE, SELFPAY ==
--- NOTE | 2020-01-19 07:46 | DI.US.S_ITS ---
PROCEDURE: US ABDOMEN COMPLETE INDICATIONS: RUQ PAIN TECHNIQUE: Real-time scanning was performed of the abdominal and retroperitoneal organs, with image documentation. COMPARISON: [facility], US, ABDOMEN COMPLETE, 05/16/2017, 15:48. [facility], US, US ABDOMEN COMPLETE, 03/26/2019, 8:54. FINDINGS: Liver: The liver demonstrates normal size. The liver demonstrates generalized increased echogenicity. This decreases ultrasound sensitivity for detection of hepatic masses. Gallbladder: A mobile gallstone is seen. The gallbladder wall is not thickened, measuring 3 mm or less. No specific pericholecystic fluid is seen. The sonographic Moore sign is negative. Biliary ducts: Intrahepatic bile ducts are non-dilated. Extrahepatic bile duct caliber measures 6 mm. Normal is 6-7 mm or less in diameter, or 10 mm or less post-cholecystectomy. Pancreas: Visualized portions of the pancreas are sonographically normal. Spleen: Spleen is normal in size and homogeneous in echotexture. Kidneys: Kidneys are normal in size and echotexture. Right kidney measures 11.2 cm long; left kidney measures 11.2 cm long. No hydronephrosis or nephrolithiasis. No solid masses. Aorta: Visualized aorta is normal in caliber at less than 3 cm. Iliacs: Proximal common iliac arteries are normal in caliber at less than 2.5 cm. IVC: Intrahepatic inferior vena cava is patent. Miscellaneous: No free abdominal fluid. IMPRESSION: A single mobile gallstone is seen, yet without additional sonographic signs of cholecystitis. Negative for biliary dilatation. Please correlate with physical examination findings, patient presentation, and laboratory values. The liver demonstrates increased echogenicity. This finding is nonspecific, yet it is most commonly attributed to fatty infiltration. Dictated by: Geronimo Kamara M.D. on 01/19/2020 at 8:36 Approved by: Geronimo Kamara M.D. on 01/19/2020 at 8:38
== END ==
PROVIDERS: Family Provider Family Medicine; PCP Family Medicine; Referring Provider Family Medicine; Visit Provider Nurse Practitioner
DX: R10.11 Right upper quadrant pain (principal); R14.0 Abdominal distension (gaseous); K80.20 Calculus of gallbladder without cholecystitis without obstruction
CPT/HCPCS: 76700

== ENCOUNTER → 2020-02-29 08:36 | Outpatient (CLI) | payer MEDICARE, SELFPAY ==
[2020-03-01 14:23] LABS: COVID19 Sendout Not Detected (Not Detect)
== END ==
PROVIDERS: PCP Family Medicine; Visit Provider Physician Assistant
DX: Z11.59 Encounter for screening for other viral diseases (principal)
CPT/HCPCS: 87635

== ENCOUNTER 2020-03-03 13:21 | Day surgery (SDC) | payer MEDICARE, SELFPAY ==
[2020-03-02 08:29] VITALS: BMI 31.6
[2020-03-03] VITALS (9 sets, daily range): BP systolic 99–144; BP diastolic 55–77; PULSE 78–88; RESP 16–25; TEMP 35.9–36.6; O2SAT 93–99; BMI 29.3
--- NOTE | 2020-03-03 | PATH_ITS ---
[facility] Accession Number: [id number] . 01 Material submitted: . gallbladder - GALLBLADDER AND CONTENTS . 01 Diagnosis: Gallbladder, Cholecystectomy: Cholelithiasis, chronic cholecystitis, and cholesterolosis. Negative for dysplasia and malignnacy. [facility] 03/08/2020 1608 Local . 01 Electronically signed: . Dianne Larios MD, Pathologist NPI- [id number] . 01 Gross description: . Received in formalin, labeled gallbladder, and consists of a 6.5 x 2.0 x 1.5 cm previously disrupted gallbladder with a 0.2 cm in diameter cystic duct. The serosa is zuniga-green and wrinkled. Opening reveals green viscous bile with a 1.0 x 0.8 x 0.8 cm green bosselated cholelith. The mucosa is zuniga-green and velvety with cholesterolosis. The wall thickness measures 0.1 cm. [employer] sections are submitted, to include the en face cystic duct margin (blue), body and fundus in cassette A1. ([id number]) /MRV 03/05/2020 1426 Local . 01 Pathologist provided ICD-10: K81.1 . 01 CPT . 850759 Performed at: [address] [facility], [place], [place] [id number] MD Chirag Kim MD Phone: [phone]
[2020-03-03] MEDS: Indocyanine 25 MG 25 EACH INJ (13:40)
[2020-03-03] MEDS: LACTATED RINGERS 1,000 ML 100 ML IV ×2 (13:47→16:22)
--- NOTE | 2020-03-03 14:02 | PM.PREOP ---
Pre-operative Note COVID-19 COVID-19 status: Negative Result date/Date tested (Pos, Neg/Pending): 02/29/20 Interval Note History & Physical reviewed/Exam performed by Physician: Yes Changes to H&P: No
[2020-03-03] MEDS: levoFLOXacin 500 MG/100 ML PIGGYBACK 100 MG IV (15:20)
--- NOTE | 2020-03-03 16:02 | SUR.OPER ---
Supine on padded OR bed, head on pillow, safety belt at thigh, left arm padded and tucked at side. Right arm secured on padded arm oard <90 degrees abduction. Legs uncrossed. Padded footboard in place. Tape over blanket to secure lower legs.
[2020-03-03] MEDS: BUPIVACAINE 0.25% W/ EPI 30 ML VIAL INJ (16:26)
--- NOTE | 2020-03-03 16:51 | PM.OP.1 ---
Operative Date/Time/Diagnoses Date of procedure: 03/03/20 Time of procedure: 16:51 Pre-op diagnosis: symptomatic cholelithiasis Post-op diagnosis: other (symptomatic cholelithiasis, chronic cholecystitis) Procedure & Clinicians Procedure: laparoscopic cholecystectomy with indocyanine cholangiography Same procedure as scheduled: Yes Indications: Symptomatic cholelithiasis Surgeon: Kaitlynn Chopra Anesthesia Type: General Operative Notes Findings: Thickened gall bladder, good critical view; soft narrow cystic duct Specimen(s): other (gall bladder and contents) Estimated Blood Loss (mL): 1 Procedure in detail: The patient was brought into the operating room and placed supine on the OR table. Sequential compression devices were placed on both legs and turned on. Appropriate perioperative antibiotics were given prior to the start of surgery. General anesthesia was induced the patient was intubated. The abdomen was prepped and draped in sterile fashion. Surgical time-out was conducted. Local anesthetic was injected under the skin just superior to the umbilicus and a 5 mm vertical incision was made at this site. The umbilical stalk was grasped with a Heide and elevated. A Veress needle was passed through the fascia into proper position. The position was tested with a saline drop test which was appropriate for intra-abdominal Veress needle placement. The abdomen was then insufflated in the usual fashion. Once insufflated to 15 mm Hg the Veress needle was removed and a 5 mm optical trocar was placed under direct vision using a 5 mm 30 degree scope. Once the camera was inside the abdomen I took a look around. There was no injury from port placement. Two additional ports were placed in a similar fashion in the right upper quadrant and a 10 mm port was placed in the epigastrium. Through the 2 lateral ports the gallbladder was grasped and elevated and the infundibulum was retracted laterally to the patient's right. This exposed the gallbladder hilum and allowed for dissection of the cystic duct and cystic artery. Omental adhesions were taken down from the gall bladder fundus. There was quite a bit of dense scar tissue throughout the gallbladder hilum. This required tedious careful dissection to avoid injury to the bile ducts. Indocyanine cholangiography was used to verify the duct structures and avoid injury to the common bile duct. Once the cystic duct and artery were completely dissected out and I was able to see liver behind and between both structures without any other structures in the way, giving us the critical view of safety. At this point I doubly clipped both structures on the patient's side and put a single clip on the gallbladder side of both the cystic duct and artery. Both structures were then divided with laparoscopic [place]. Following this the gallbladder was gradually dissected free from the liver. There was quite a bit of hypervascularity of the scar tissue between the gallbladder and the liver. Several small vessels had to be controlled with cautery. Once the gallbladder was entirely freed, it was placed inside an Endo-Catch bag and removed through the epigastric port site. I did have to slightly enlarge the epigastric site in order to get the gallbladder out. Once it was out and passed off to the back table I then took another look inside the abdomen. I suctioned clean any remaining blood or fluid on the lateral side of the liver and in the subhepatic space. There was no active bleeding or leaking of bile from the gallbladder fossa or from the clipped stumps of the cystic duct and artery. At this point the insufflation was removed from the abdomen and the epigastric port site was closed with 0 Vicryl suture in the fascia, 3 O Vicryl in the subcutaneous layers, and 4 Monocryl in the skin. The remaining port sites were closed with 4 Monocryl in the skin. Each port site was sealed with Dermabond. Local anesthetic was given at each of the port sites and in the fascia. This concluded the procedure. At this point the needle sponge and instrument counts were correct. The gallbladder was passed off the table for pathology. Patient was awakened from anesthesia and extubated. She was transferred to the postanesthesia care unit in stable condition. Complications: none Post-operative Condition: stable Disposition: PACU
[2020-03-03] MEDS: OXYCODONE IR 5 MG TABLET PO (17:32)
--- NOTE | 2020-03-03 18:22 | SUR.PHASEII ---
1815-Alll dc instructions given and pt verbalizes understanding. iv dcd site clear. Pt up and ambulating gait steady and slow, assisted to get dressed. Pt wanting to leave and go home, outside in parking lot.
--- NOTE | 2020-03-03 18:24 | SUR.PHASEII ---
1817-Pt dcd in stable condition with all belongings, no c/o.
== END 2020-03-03 18:17 | disposition home or self-care (01) ==
PROVIDERS: PCP Family Medicine; Referring Provider Family Medicine; Visit Provider Surgery
PROC: 0FT44ZZ Resection of Gallbladder, Percutaneous Endoscopic Approach (ICD-10-PCS; CPT 47562; principal; 2020-03-03 15:15)
DX: K80.10 Calculus of gallbladder with chronic cholecystitis without obstruction (principal); I10 Essential (primary) hypertension; K21.9 Gastro-esophageal reflux disease without esophagitis
CPT/HCPCS: 47563; J0330; J1100; J1956; J2405; J2704; J3010

== ENCOUNTER → 2020-05-04 06:51 | Outpatient (CLI) | payer MEDICARE, SELFPAY ==
[2020-05-04 07:47] LABS: Alanine Aminotransferase 27 IU/L (<35); Albumin 4.2 g/dL (3.5-5.0); Albumin Globulin Ratio 1.6 (1.0-2.8); Alkaline Phosphatase 119 U/L (38-126); Aspartate Aminotransferase 26 IU/L (14-36); BUN Creatinine Ratio 21.5 (6-22); Bilirubin Total 0.7 mg/dL (0.2-1.3); Blood Urea Nitrogen 17 mg/dL (7-17); Calcium 9.7 mg/dL (8.4-10.2); Carbon Dioxide 29 mmol/L (22-32); Chloride 107 mmol/L (98-107); Cholesterol 226 mg/dL (140-199); Estimated Glomerular Filt Rate > 60.0 mL/min (>60); Globulin 2.6 g/dL (1.7-4.1); Glucose 85 mg/dL (80-110); HDL Cholesterol 40 mg/dL (40-60); HEMOLYSIS < 15 (0-50); LDL Cholesterol Calculated 156 mg/dL (<100); Sodium 140 mmol/L (137-145); Total Protein 6.8 g/dL (6.3-8.2); Triglycerides 152 mg/dL (35-150)
[2020-05-04 16:06] LABS: Creatinine Urine Random 19.1 mg/dL
[2020-05-04 16:11] LABS: Microalbumin Urine Random < 0.6 mg/dL (0-1.6)
== END ==
PROVIDERS: PCP Family Medicine; Referring Provider Family Medicine; Visit Provider Family Medicine
DX: I10 Essential (primary) hypertension (principal)
CPT/HCPCS: 36415; 80053; 80061; 82043; 82570

== ENCOUNTER → 2020-06-24 12:24 | Outpatient (CLI) | payer MEDICARE, SELFPAY ==
--- NOTE | 2020-06-24 12:26 | DI.RAD.S_ITS ---
PROCEDURE: XR DEXA AXIAL SKELETON INDICATIONS: Screening COMPARISON: None. FINDINGS: This blank DEXA report has been sent in error by the PACS system. The correct and complete report will be forthcoming in 1-2 days. Thank you for your patience and understanding. Dictated by: Jackeline Tejada MD, PhD on 06/24/2020 at 14:37 Approved by: Jackeline Tejada MD, PhD on 06/24/2020 at 14:37
--- NOTE | 2020-06-24 12:26 | DI.MG.S_ITS ---
BILATERAL DIGITAL SCREENING MAMMOGRAM 3D/2D WITH CAD: 06/24/2020 CLINICAL: Routine screening. Comparison is made to exams dated: 11/20/2018 mammogram, 03/27/2017 mammogram, 12/01/2015 mammogram, and 04/19/2017 mammogram - [facility]. There are scattered fibroglandular elements in both breasts. Current study was also evaluated with a Computer Aided Detection (CAD) system. There are benign calcifications in both breasts. No significant masses, calcifications, or other findings are seen in either breast. There has been no significant interval change. IMPRESSION: BENIGN There is no mammographic evidence of malignancy. A 1 year screening mammogram is recommended. This exam was interpreted at Station ID: [id number]. NOTE: For mammograms, a report in lay terms will be sent to the patient. Approximately 15% of breast malignancies will not be visualized mammographically. In the management of a palpable breast mass, a negative mammogram must not discourage biopsy of a clinically suspicious lesion. Electronically Signed By: Nolberto dolan/carin:06/29/2020 08:25:31 letter sent: Normal Exam ACR BI-RADS Category 2: Benign Finding(s) 3342F
== END ==
PROVIDERS: PCP Family Medicine; Referring Provider Family Medicine; Visit Provider Family Medicine
DX: Z12.31 Encounter for screening mammogram for malignant neoplasm of breast (principal); Z78.0 Asymptomatic menopausal state; Z82.62 Family history of osteoporosis
CPT/HCPCS: 77063; 77067; 77080

== ENCOUNTER → 2020-11-05 08:20 | Outpatient (CLI) | payer MEDICARE, SELFPAY ==
[2020-11-05 09:31] LABS: Add Manual Diff / Slide Review NO; Basophils Absolute Auto 0 /uL (0-100); Basophils Percent Auto 0.6 % (0-2); Eosinophils Absolute Auto 600 /uL (0-450); Eosinophils Percent Auto 11.3 % (2-4); Hemoglobin 13.4 g/dL (12.0-16.0); Lymphocytes Absolute Auto 1600 /uL (1100-4500); Lymphocytes Percent Auto 30.8 % (25-40); Mean Corpuscular HGB Conc 33.5 % (30-36); Mean Corpuscular Hemoglobin 30.4 PG (26-34); Mean Corpuscular Volume 90.7 fL (80-100); Monocytes Absolute Auto 500 /uL (0-900); Monocytes Percent Auto 8.8 % (3-14); Neutrophils Absolute Auto 2600 /uL (1500-7000); Neutrophils Percent Auto 48.5 % (50-75); Platelet Count 209 X10^3/uL (150-400); Red Blood Cell Count 4.42 X10^6/uL (4.0-5.2); Red Cell Distribution Width 14.3 % (11.6-14.8); White Blood Cell Count 5.3 X10^3/uL (4.5-11.0)
[2020-11-05 09:50] LABS: Alanine Aminotransferase 22 IU/L (<35); Albumin 4.1 g/dL (3.5-5.0); Albumin Globulin Ratio 1.7 (1.0-2.8); Alkaline Phosphatase 117 U/L (38-126); Aspartate Aminotransferase 27 IU/L (14-36); Bilirubin Total 0.5 mg/dL (0.2-1.3); Blood Urea Nitrogen 15 mg/dL (7-17); Calcium 9.7 mg/dL (8.4-10.2); Carbon Dioxide 28 mmol/L (22-32); Chloride 106 mmol/L (98-107); Cholesterol 213 mg/dL (140-199); Estimated Glomerular Filt Rate > 60.0 mL/min (>60); Globulin 2.4 g/dL (1.7-4.1); Glucose 95 mg/dL (80-110); HDL Cholesterol 42 mg/dL (40-60); HEMOLYSIS < 15 (0-50); LDL Cholesterol Calculated 144 mg/dL (<100); Potassium 4.4 mmol/L (3.4-5.1); Sodium 139 mmol/L (137-145); Total Protein 6.5 g/dL (6.3-8.2); Triglycerides 134 mg/dL (35-150)
== END ==
PROVIDERS: PCP Family Medicine; Referring Provider Family Medicine; Visit Provider Family Medicine
DX: E78.2 Mixed hyperlipidemia (principal); K21.9 Gastro-esophageal reflux disease without esophagitis; R68.81 Early satiety; Z90.49 Acquired absence of other specified parts of digestive tract
CPT/HCPCS: 36415; 80053; 80061; 85025

== ENCOUNTER → 2021-07-28 10:09 | Outpatient (CLI) | payer MEDICARE, SELFPAY ==
--- NOTE | 2021-07-28 | DI.MG.S_ITS ---
BILATERAL DIGITAL SCREENING MAMMOGRAM 3D/2D WITH CAD: 07/28/2021 CLINICAL: Routine screening. Comparison is made to exams dated: 06/24/2020 mammogram - [facility], 11/20/2018 mammogram, and 04/19/2017 mammogram - [facility]. There are scattered fibroglandular elements in both breasts. Current study was also evaluated with a Computer Aided Detection (CAD) system. There are benign calcifications in both breasts. No significant masses, calcifications, or other findings are seen in either breast. There has been no significant interval change. IMPRESSION: BENIGN There is no mammographic evidence of malignancy. A 1 year screening mammogram is recommended. This exam was interpreted at Station ID: [id number]. NOTE: For mammograms, a report in lay terms will be sent to the patient. Approximately 15% of breast malignancies will not be visualized mammographically. In the management of a palpable breast mass, a negative mammogram must not discourage biopsy of a clinically suspicious lesion. Electronically Signed By: Chace Montoya M.D., jr/carin:07/28/2021 10:39:16 letter sent: Normal Exam ACR BI-RADS Category 2: Benign Finding(s) 3342F
== END ==
PROVIDERS: PCP Family Medicine; Referring Provider Family Medicine; Visit Provider Family Medicine
DX: Z12.31 Encounter for screening mammogram for malignant neoplasm of breast (principal)
CPT/HCPCS: 77063; 77067

== ENCOUNTER → 2021-11-08 08:08 | Outpatient (CLI) | payer MEDICARE, SELFPAY ==
--- NOTE | 2021-11-08 08:10 | DI.RAD.S_ITS ---
PROCEDURE: XR KNEE RT 3V INDICATIONS: knee pain TECHNIQUE: 3 views of the knee were acquired. COMPARISON: None. FINDINGS: Bones: No fractures or dislocations. No suspicious bony lesions. Mild to moderate lateral and patellofemoral compartment osteoarthritis. Mild medial compartment osteoarthritis. Soft tissues: No joint effusion. No suspicious soft tissue calcifications. IMPRESSION: Right knee tricompartmental osteoarthritis. Dictated by: Jackeline Tejada MD, PhD on 11/08/2021 at 11:13 Approved by: Jackeline Tejada MD, PhD on 11/08/2021 at 11:14
--- NOTE | 2021-11-08 08:10 | DI.RAD.S_ITS ---
PROCEDURE: XR KNEE LT 3V INDICATIONS: knee pain TECHNIQUE: 3 views of the knee were acquired. COMPARISON: None. FINDINGS: Bones: No fractures or dislocations. No suspicious bony lesions. Moderate osteoarthritic degenerative changes noted in all 3 compartments of the left knee Soft tissues: No joint effusion. No suspicious soft tissue calcifications. IMPRESSION: Moderate left knee tricompartmental osteoarthritis. Dictated by: Jackeline Tejada MD, PhD on 11/08/2021 at 11:14 Approved by: Jackeline Tejada MD, PhD on 11/08/2021 at 11:15
== END ==
PROVIDERS: PCP Family Medicine; Referring Provider Family Medicine; Visit Provider Family Medicine
DX: E78.5 Hyperlipidemia, unspecified (principal); I10 Essential (primary) hypertension; M25.561 Pain in right knee; M25.562 Pain in left knee; M17.0 Bilateral primary osteoarthritis of knee
CPT/HCPCS: 73562

== ENCOUNTER → 2022-07-25 08:16 | Outpatient (CLI) | payer MEDICARE, SELFPAY ==
[2022-07-25 08:38] LABS: Add Manual Diff / Slide Review NO; Basophils Absolute Auto 0 /uL (0-100); Basophils Percent Auto 0.8 % (0-2); Eosinophils Absolute Auto 200 /uL (0-450); Eosinophils Percent Auto 3.8 % (2-4); Hematocrit 41.7 % (36-46); Hemoglobin 14.1 g/dL (12.0-16.0); Lymphocytes Absolute Auto 1600 /uL (1100-4500); Lymphocytes Percent Auto 32.2 % (25-40); Mean Corpuscular HGB Conc 33.8 % (30-36); Mean Corpuscular Volume 88.7 fL (80-100); Monocytes Absolute Auto 500 /uL (0-900); Monocytes Percent Auto 9.3 % (3-14); Neutrophils Absolute Auto 2700 /uL (1500-7000); Neutrophils Percent Auto 53.9 % (50-75); Platelet Count 208 X10^3/uL (150-400); Red Cell Distribution Width 14.3 % (11.6-14.8)
[2022-07-25 09:27] LABS: Alanine Aminotransferase 22 IU/L (<35); Albumin 4.3 g/dL (3.5-5.0); Albumin Globulin Ratio 1.4 (1.0-2.8); Alkaline Phosphatase 99 U/L (38-126); Aspartate Aminotransferase 24 IU/L (14-36); BUN Creatinine Ratio 16.3 (6-22); Bilirubin Total 1.1 mg/dL (0.2-1.3); Blood Urea Nitrogen 13 mg/dL (7-17); Calcium 9.3 mg/dL (8.4-10.2); Carbon Dioxide 31 mmol/L (22-32); Chloride 102 mmol/L (98-107); Cholesterol 240 mg/dL (140-199); Estimated Glomerular Filt Rate > 60 mL/min (>60); Globulin 3.1 g/dL (1.7-4.1); Glucose 90 mg/dL (80-110); HDL Cholesterol 47 mg/dL (40-60); HEMOLYSIS < 15 (0-50); LDL Cholesterol Calculated 167 mg/dL (<100); Potassium 3.6 mmol/L (3.4-5.1); Sodium 140 mmol/L (137-145); Total Protein 7.4 g/dL (6.3-8.2); Triglycerides 130 mg/dL (35-150)
[2022-07-25 09:33] LABS: Creatinine Urine Random 49.1 mg/dL
[2022-07-25 09:38] LABS: Microalbumin Urine Random < 0.6 mg/dL (0-1.6)
[2022-07-25 09:53] LABS: TSH w/ Reflex to FT4 1.59 uIU/mL (0.47-4.68)
== END ==
PROVIDERS: PCP Family Medicine; Referring Provider Family Medicine; Visit Provider Family Medicine
DX: E78.2 Mixed hyperlipidemia (principal); I10 Essential (primary) hypertension; M25.561 Pain in right knee; M25.562 Pain in left knee
CPT/HCPCS: 36415; 80053; 80061; 82043; 82570; 84443; 85025

== ENCOUNTER → 2022-07-31 08:06 | Outpatient (CLI) | payer MEDICARE, SELFPAY ==
--- NOTE | 2022-07-31 08:09 | DI.MG.S_ITS ---
BILATERAL DIGITAL SCREENING MAMMOGRAM 3D/2D WITH CAD: 07/31/2022 CLINICAL: Routine screening. Comparison is made to exams dated: 07/28/2021 mammogram - [facility], 11/20/2018 mammogram - [facility], and 06/24/2020 mammogram - [facility]. There are scattered areas of fibroglandular density in both breasts (category b / 25%-50% glandular tissue). Current study was also evaluated with a Computer Aided Detection (CAD) system. There are grouped punctate calcifications in the right breast at 10 o'clock middle depth. These are increased in number and now have a possible branching pattern. No other significant masses, calcifications, or other findings are seen in either breast. IMPRESSION: INCOMPLETE: NEEDS ADDITIONAL IMAGING EVALUATION The grouped punctate calcifications in the right breast are indeterminate. Additional views with possible ultrasound are recommended. Based on the Tyrer Cuzick model (a risk assessment model) the patient's lifetime risk is 4.4% and her 10 year risk is 2.6%. According to the ACR, ACS, and NCCN guidelines, an annual breast MRI exam along with mammogram is recommended if the patient's lifetime risk is 20% or greater. This exam was interpreted at Station ID: [id number]. NOTE: For mammograms, a report in lay terms will be sent to the patient. Approximately 15% of breast malignancies will not be visualized mammographically. In the management of a palpable breast mass, a negative mammogram must not discourage biopsy of a clinically suspicious lesion. Electronically Signed By: Bert Mcintosh M.D. acr/:07/31/2022 08:36:08 letter sent: Additional Imaging Needed ACR BI-RADS Category 0: Incomplete 3340F
== END ==
PROVIDERS: PCP Family Medicine; Referring Provider Family Medicine; Visit Provider Family Medicine
DX: Z12.31 Encounter for screening mammogram for malignant neoplasm of breast (principal)
CPT/HCPCS: 77063; 77067

== ENCOUNTER → 2022-08-21 14:11 | Outpatient (CLI) | payer MEDICARE, SELFPAY ==
--- NOTE | 2022-08-21 14:13 | DI.MG.S_ITS ---
UNILATERAL RIGHT DIGITAL DIAGNOSTIC MAMMOGRAM 3D/2D WITH ADDITIONAL VIEWS: 08/21/2022 CLINICAL: Additional evaluation requested from prior study. Comparison is made to exams dated: 07/31/2022 mammogram, 07/28/2021 mammogram, and 06/24/2020 mammogram - [facility]. There are scattered areas of fibroglandular density in the right breast (category b / 25%-50% glandular tissue). There are stable benign grouped punctate calcifications in the right breast at 10 o'clock middle depth, variably seen on prior imaging due to differences in overlapping dense breast tissue. On CC view particularly, these seem to be stable from 2020, thus 2 year stability. No other significant masses or calcifications are seen in the breast. IMPRESSION: BENIGN There is no mammographic evidence of malignancy. Return to annual mammogram screening schedule is recommended. Based on the Tyrer Cuzick model (a risk assessment model) the patient's lifetime risk is 4.4% and her 10 year risk is 2.6%. According to the ACR, ACS, and NCCN guidelines, an annual breast MRI exam along with mammogram is recommended if the patient's lifetime risk is 20% or greater. This exam was interpreted at Station ID: [id number]. NOTE: For mammograms, a report in lay terms will be sent to the patient. Approximately 15% of breast malignancies will not be visualized mammographically. In the management of a palpable breast mass, a negative mammogram must not discourage biopsy of a clinically suspicious lesion. Electronically Signed By: Amilcar Kelly M.D. lc/:08/21/2022 14:52:12 letter sent: Normal Exam ACR BI-RADS Category 2: Benign Finding(s) 3342F
== END ==
PROVIDERS: PCP Family Medicine; Referring Provider Family Medicine; Visit Provider Family Medicine
DX: R92.8 Other abnormal and inconclusive findings on diagnostic imaging of breast (principal); R92.1 Mammographic calcification found on diagnostic imaging of breast
CPT/HCPCS: 77065; G0279

== ENCOUNTER → 2023-03-12 09:42 | Outpatient (CLI) | payer MEDICARE, SELFPAY ==
[2023-03-12 11:45] LABS: Cholesterol 234 mg/dL (140-199); HDL Cholesterol 46 mg/dL (40-60); LDL Cholesterol Calculated 162 mg/dL (<100); Triglycerides 131 mg/dL (35-150)
== END ==
PROVIDERS: PCP Family Medicine; Referring Provider Family Medicine; Visit Provider Family Medicine
DX: E78.2 Mixed hyperlipidemia (principal); I10 Essential (primary) hypertension
CPT/HCPCS: 36415; 80061

== ENCOUNTER → 2023-04-02 15:08 | Outpatient (CLI) | payer MEDICARE, SELFPAY | PROVIDERS: PCP Family Medicine; Referring Provider Family Medicine; Visit Provider Family Medicine | DX: R00.2 Palpitations (principal); R55 Syncope and collapse; I48.91 Unspecified atrial fibrillation; I48.92 Unspecified atrial flutter | CPT/HCPCS: 93246 ==

== ENCOUNTER → 2023-08-02 07:57 | Outpatient (CLI) | payer MEDICARE, SELFPAY ==
--- NOTE | 2023-08-02 | DI.MG.S_ITS ---
BILATERAL DIGITAL SCREENING MAMMOGRAM 3D/2D WITH CAD: 08/02/2023 CLINICAL: Routine screening. Comparison is made to exams dated: 08/21/2022 mammogram, 07/31/2022 mammogram, 07/28/2021 mammogram, and 06/24/2020 mammogram - [facility]. Both breasts are heterogeneously dense, which may obscure small masses (category c / 51-75% glandular tissue). Current study was also evaluated with a Computer Aided Detection (CAD) system. No significant masses, calcifications, or other findings are seen in either breast. There has been no significant interval change. IMPRESSION: NEGATIVE There is no mammographic evidence of malignancy. A 1 year screening mammogram is recommended. Based on the Tyrer Cuzick model (a risk assessment model) the patient's lifetime risk is 6.3% and her 10 year risk is 4.0%. According to the ACR, ACS, and NCCN guidelines, an annual breast MRI exam along with mammogram is recommended if the patient's lifetime risk is 20% or greater. This exam was interpreted at Station ID: [id number]. NOTE: For mammograms, a report in lay terms will be sent to the patient. Approximately 15% of breast malignancies will not be visualized mammographically. In the management of a palpable breast mass, a negative mammogram must not discourage biopsy of a clinically suspicious lesion. Electronically Signed By: Amilcar brewer/carin:08/02/2023 09:07:50 letter sent: Normal Exam ACR BI-RADS Category 1: Negative 3341F
== END ==
PROVIDERS: PCP Family Medicine; Referring Provider Family Medicine; Visit Provider Family Medicine
DX: Z12.31 Encounter for screening mammogram for malignant neoplasm of breast (principal); R92.323 Mammographic fibroglandular density, bilateral breasts
CPT/HCPCS: 77063; 77067

== ENCOUNTER → 2023-08-22 07:33 | Outpatient (CLI) | payer MEDICARE, SELFPAY ==
[2023-08-22 08:17] LABS: Hemoglobin A1C% w Est Avg Glu 5.2 % (4.0-6.0)
[2023-08-22 08:42] LABS: Alanine Aminotransferase 22 IU/L (<35); Albumin 4.1 g/dL (3.5-5.0); Albumin Globulin Ratio 1.6 (1.0-2.8); Alkaline Phosphatase 88 U/L (38-126); Aspartate Aminotransferase 24 IU/L (14-36); BUN Creatinine Ratio 13.8 (6-22); Blood Urea Nitrogen 12 mg/dL (7-17); Calcium 9.3 mg/dL (8.4-10.2); Carbon Dioxide 31 mmol/L (22-32); Chloride 106 mmol/L (98-107); Cholesterol 132 mg/dL (140-199); Estimated Glomerular Filt Rate > 60 mL/min (>60); Globulin 2.5 g/dL (1.7-4.1); Glucose 93 mg/dL (80-110); HDL Cholesterol 43 mg/dL (40-60); HEMOLYSIS < 15 (0-50); LDL Cholesterol Calculated 63 mg/dL (<100); Sodium 141 mmol/L (137-145); Total Protein 6.6 g/dL (6.3-8.2); Triglycerides 129 mg/dL (35-150)
[2023-08-23 14:09] LABS: Cholesterol HDL Ratio 3.1 ratio (0.0-4.4); Cholesterol,Total 136 mg/dL (100-199); HDL Cholesterol 44 mg/dL (>39); LDL Cholesterol Cal 71 mg/dL (0-99); Triglycerides 116 mg/dL (0-149); VLDL Cholesterol Cal 21 mg/dL (5-40)
[2023-08-24 05:21] LABS: Apolipoprotein B 63 mg/dL (<90)
== END ==
LOC: LAB 07:35
PROVIDERS: Family Medicine; PCP Family Medicine; Referring Provider Internal Medicine Cardiovascular Disease; Visit Provider Internal Medicine Cardiovascular Disease
DX: R79.9 Abnormal finding of blood chemistry, unspecified (principal); I10 Essential (primary) hypertension; I48.91 Unspecified atrial fibrillation; E78.5 Hyperlipidemia, unspecified; R06.02 Shortness of breath; Z13.1 Encounter for screening for diabetes mellitus; I48.0 Paroxysmal atrial fibrillation; E78.2 Mixed hyperlipidemia
CPT/HCPCS: 36415; 80053; 80061; 82172; 83036

== ENCOUNTER → 2023-10-15 10:04 | Outpatient (CLI) | payer MEDICARE, SELFPAY ==
--- NOTE | 2023-10-15 10:07 | DI.ECHO.S_ITS ---
[facility]+ [facility] : : [address] : : [place] : : [id number] : : Phone: [phone] Echocardiogram Report + + :Name: CRISTINA RODRIGUEZ Study Date: 10/15/2023 Height: 65 in : :Hospital ReadingLocation: Weight: 190 lb : : Gender: Female BSA: 1.9 m2 : :: 1955 Age: 68 yrs BP: 165/90 mmHg: :Reason For Study: SHORTNESS OF BREATH : :Ordering Physician: ROHITH, : :LUPE Vallejo Performed By: Carisa Santos : :Referring: LUPE VILLALTA : + + Interpretation Summary The ejection fraction is estimated to be 60-65%. Diastolic parameters suggest probable normal left ventricular diastolic function and normal filling pressures. The right ventricle is normal in size and function. No significant valvular abnormalities. Pulmonary artery pressures cannot be estimated because of the lack of a measurable TR jet velocity but the IVC suggests a CVP of around 3 mmHg. Compared to the prior study dated 08/13/2013, no significant change. Procedure: A two-dimensional transthoracic echocardiogram with color flow and Doppler was performed. The study quality was technically adequate. Comparison is made with the echocardiogram of 08/13/2013. The patient was in sinus rhythm with heart rates between 59-67 bpm during the exam. Left Ventricle: Proximal septal thickening is noted. The left ventricle is normal in size. The ejection fraction is estimated to be 60-65%. Diastolic parameters suggest probable normal left ventricular diastolic function and normal filling pressures. Right Ventricle: The right ventricle is normal in size and function. Atria: The left atrial size is normal. Right atrial size is normal. There is no Doppler evidence for an interatrial shunt. Mitral Valve: The mitral valve is normal. There is trace mitral regurgitation. Aortic Valve: The aortic valve is trileaflet. The aortic valve opens well. There is no aortic valve stenosis. No aortic regurgitation is present. Tricuspid Valve: The tricuspid valve is normal in structure and function. There is trace tricuspid regurgitation. Pulmonary artery pressures cannot be estimated because of the lack of a measurable TR jet velocity but the IVC suggests a CVP of around 3 mmHg. Pulmonic Valve: The pulmonic valve leaflets are thin and pliable; valve motion is normal. There is mild pulmonic regurgitation. Great Vessels: The aortic root is normal size. The dimensions of the ascending aorta are normal. The IVC is of normal diameter and collapses greater than 50% with a sniff. This suggests a low right atrial pressure of 3 mm Hg. Pericardium/ Pleura There is no pericardial effusion. There is no pleural effusion. MMode/2D Measurements & Calculations LVIDd: 4.6 cm LVOT diam: 2.0 cm LVIDs: 3.2 cm Ao root diam: 2.8 cm FS: 30.0 % asc Aorta Diam: 3.1 cm IVSd: 0.69 cm Ao Arch Diam (Prox Trans): 2.4 cm LVPWd: 0.87 cm LV vieira. diameter/BSA (cm/m^2): 2.4 LV sys. diameter/BSA (cm/m^2): 1.7 LA A2 area: 21.4 cm2 RA long axis: 5.1 cm LA A4 area: 19.3 cm2 RA area: 16.6 cm2 LA length (vol): 5.6 cm RA vol: 45.5 ml LA vol: 62.1 ml RA : 23.5 ml/m2 LA vol index: 32.1 ml/m2 IVC diam: 1.6 cm RVD1 (basal): 3.7 cm RVD2 (mid): 3.3 cm TAPSE: 1.7 cm Doppler Measurements & Calculations Ao V2 max: 132.4 cm/sec LVOT Max Anatoly: 82.4 cm/sec Ao V2 mean: 101.3 cm/sec LV V1 max P.7 mmHg Ao max P.0 mmHg LV V1 VTI: 19.9 cm Ao mean P.4 mmHg NERIS(I,D): 2.0 cm2 Ao V2 VTI: 30.4 cm NERIS(V,D): 1.9 cm2 sev ratio: 0.66 NERIS indexed to BSA (cm^2/m^2): 1.1 MV E max anatoly: 83.4 cm/sec PA V2 max: 114.4 cm/sec MV A max anatoly: 80.1 cm/sec PA V2 mean: 80.5 cm/sec MV E/A: 1.0 PA mean P.8 mmHg Med Peak E' Anatoly: 6.3 cm/sec PA pr(Accel): 25.9 mmHg E/E' med: 13.1 Lat Peak E' Anatoly: 7.1 cm/sec E/E' lat: 11.7 E/e' average: 12.4 MV dec time: 0.23 sec [facility] 62.3 ml Reading Physician:07:45 PM
--- NOTE | 2023-10-15 21:44 | DI.NM.S_ITS ---
DATE OF SERVICE: 10/15/2023 PROCEDURE: Exercise treadmill stress and rest myocardial perfusion imaging with gating to assess ejection fraction and regional wall motion. ORDERING PROVIDER: Lupe Villalta M.D. INDICATIONS: The patient is a 68-year-old female with exertional dyspnea and recently discovered paroxysmal atrial fibrillation. CARDIAC STRESS: The patient was able to exercise for 7 minutes and 34 seconds on a standard Noel protocol, suggesting very good exercise capacity with an NELLIE of -21%, achieving 7.7 METS. She had a normal heart rate and blood pressure response to exercise, achieving a maximum heart rate of 133 BPM (89% of her predicted maximum). She reported 2/10 chest pressure early in the stage I that was nonprogressive, and denied any other anginal symptoms. Her resting ECG showed sinus rhythm with normal ST segments and there were no significant ST-segment shifts with stress. There were rare isolated PVCs but no other arrhythmias and she remained in sinus rhythm throughout. At 6 minutes and 30 seconds of exercise at a heart rate of 128 BPM, 25.7 millicuries of technetium-99m Myoview was injected and she was imaged 15 minutes later using a gated SPECT acquisition protocol. Earlier in the day while at rest, she had been injected with 12.8 millicuries of technetium-99m Myoview and was imaged 15 minutes later, again using a gated SPECT acquisition protocol. FINDINGS: 1. Raw data. There is fairly good myocardial tracer uptake with moderate breast shadows noted. The lung/heart ratio is normal at 0.25 with a normal TID ratio of 0.74. 2. Quantitative gated SPECT: Post-stress ejection fraction is estimated at 88% without any focal wall motion abnormality, but likely an overestimate because of relatively small left ventricular volumes. Resting ejection fraction is estimated at 81% with a low normal resting end-diastolic volume of 79 mL. 3. Myocardial perfusion imaging: Post-stress supine images show a fairly normal myocardial perfusion pattern with a very subtle defect in the mid anterior wall in a pattern consistent with breast attenuation artifact, supported by its complete resolution on the prone images, revealing a normal, homogeneous perfusion pattern. The resting images show an identical perfusion pattern to that of the post-stress supine images without any areas of improvement. IMPRESSION: 1. Probable normal myocardial perfusion study. 2. Subtle, fixed anterior defect that resolves on prone imaging, consistent with breast attenuation artifact. There is no compelling evidence for any myocardial ischemia or previous myocardial infarction. 3. High normal left ventricular systolic function with relatively small left ventricular volumes and no focal wall motion abnormality. 4. Very good exercise capacity with mild chest discomfort but no ECG changes of ischemia and no arrhythmias except for occasional PVCs. Christy Stallworth - GHAZALA/paradise/SHARLENE doc#: [id number]/job#: [id number] dd: 10/15/2023 16:52:00 dt: 10/15/2023 21:27:00 DICTATING MD/COPIES TO: Alexander Resendiz MD; Lupe Villalta M.D. COPIES MNE: SCOTT;
== END ==
PROVIDERS: PCP Family Medicine; Referring Provider Internal Medicine Cardiovascular Disease; Visit Provider Internal Medicine Cardiovascular Disease
DX: R06.02 Shortness of breath (principal); I49.3 Ventricular premature depolarization
CPT/HCPCS: 78452; 93017; 93306; A9502

== ENCOUNTER → 2023-12-14 10:07 | Outpatient (CLI) | payer MEDICARE, SELFPAY ==
[2023-12-14 11:21] LABS: Add Manual Diff / Slide Review NO; Basophils Absolute Auto 0 /uL (0-100); Basophils Percent Auto 0.5 % (0-2); Eosinophils Absolute Auto 200 /uL (0-450); Eosinophils Percent Auto 2.9 % (2-4); Hemoglobin 13.3 g/dL (12.0-16.0); Lymphocytes Absolute Auto 1600 /uL (1100-4500); Lymphocytes Percent Auto 28.2 % (25-40); Mean Corpuscular HGB Conc 34.2 % (30-36); Mean Corpuscular Hemoglobin 30.6 PG (26-34); Mean Corpuscular Volume 89.3 fL (80-100); Monocytes Absolute Auto 500 /uL (0-900); Monocytes Percent Auto 9.3 % (3-14); Neutrophils Absolute Auto 3400 /uL (1500-7000); Neutrophils Percent Auto 59.1 % (50-75); Platelet Count 188 X10^3/uL (150-400); Red Blood Cell Count 4.36 X10^6/uL (4.0-5.2); Red Cell Distribution Width 13.9 % (11.6-14.8); White Blood Cell Count 5.7 X10^3/uL (4.5-11.0)
[2023-12-14 11:51] LABS: BUN Creatinine Ratio 19.3 (6-22); Blood Urea Nitrogen 16 mg/dL (7-17); Calcium 8.7 mg/dL (8.4-10.2); Carbon Dioxide 30 mmol/L (22-32); Chloride 107 mmol/L (98-107); Estimated Glomerular Filt Rate > 60 mL/min (>60); Glucose 98 mg/dL (80-110); HEMOLYSIS < 15 (0-50); Potassium 4.4 mmol/L (3.4-5.1); Sodium 140 mmol/L (137-145)
[2023-12-14 12:07] LABS: Microalbumin Urine Random 0.8 mg/dL (0-1.6)
[2023-12-14 12:24] LABS: TSH w/ Reflex to FT4 1.16 uIU/mL (0.47-4.68)
[2023-12-14 12:45] LABS: Hep C Virus Ab w/Reflex Quant NEGATIVE s/c (NEGATIVE)
== END ==
LOC: LAB 10:07
PROVIDERS: PCP Family Medicine; Referring Provider Physician Assistant; Visit Provider Physician Assistant
DX: Z00.00 Encounter for general adult medical examination without abnormal findings (principal); I48.91 Unspecified atrial fibrillation; E78.5 Hyperlipidemia, unspecified; I10 Essential (primary) hypertension; I48.0 Paroxysmal atrial fibrillation
CPT/HCPCS: 36415; 80048; 82043; 82570; 84443; 85025; 86803

== ENCOUNTER → 2024-02-05 10:58 | Outpatient (CLI) | payer MEDICARE, SELFPAY ==
--- NOTE | 2024-02-05 10:59 | DI.RAD.S_ITS ---
PROCEDURE: XR KNEE RT 3V INDICATIONS: right knee pain - suspect OA TECHNIQUE: 3 views of the knee were acquired. COMPARISON: [facility], CR, XR KNEE RT 3V, 11/08/2021, 8:00. [facility], CR, XR KNEE LT 3V, 11/08/2021, 8:00. FINDINGS: Bones: No acute fractures or dislocations. No suspicious bony lesions. Tricompartmental joint space narrowing is seen with subchondral sclerosis and marginal osteophytes. On lateral view, the joint space narrowing appears to be severe at the posterior aspect of the presumably lateral femorotibial compartment. Moderate joint space narrowing is seen throughout the remainder of the knee. Soft tissues: Moderate joint effusion. No suspicious soft tissue calcifications. 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 Findings appear mildly progressed when compared to the exam from 11/08/2021. Moderate joint effusion. Approved by: Nolberto Hopper M.D. on 02/05/2024 at 13:58
== END ==
PROVIDERS: PCP Family Medicine; Referring Provider Family Medicine; Visit Provider Family Medicine
DX: M17.11 Unilateral primary osteoarthritis, right knee (principal); M25.461 Effusion, right knee; M25.561 Pain in right knee
CPT/HCPCS: 73562

== ENCOUNTER 2024-02-27 11:10 | Emergency (ER) | payer MEDICARE, SELFPAY ==
[2024-02-27] VITALS (13 sets, daily range): BP systolic 116–160; BP diastolic 57–73; PULSE 57–73; RESP 16; TEMP 37; O2SAT 93–100; BMI 32.5
[2024-02-27] MEDS: ONDANSETRON 4 MG/2 ML INJ IV (11:33)
[2024-02-27] MEDS: PANTOPRAZOLE 40 MG VIAL 80 MG IV (11:33)
--- NOTE | 2024-02-27 11:34 | EKG_ITS ---
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
[2024-02-27 11:59] LABS: Add Manual Diff / Slide Review NO; Basophils Absolute Auto 100 /uL (0-100); Eosinophils Absolute Auto 200 /uL (0-450); Eosinophils Percent Auto 3.7 % (2-4); Hematocrit 39.9 % (36-46); Hemoglobin 13.7 g/dL (12.0-16.0); Lymphocytes Absolute Auto 1900 /uL (1100-4500); Lymphocytes Percent Auto 28.2 % (25-40); Mean Corpuscular HGB Conc 34.2 % (30-36); Mean Corpuscular Hemoglobin 30.6 PG (26-34); Mean Corpuscular Volume 89.3 fL (80-100); Monocytes Absolute Auto 500 /uL (0-900); Monocytes Percent Auto 7.9 % (3-14); Neutrophils Absolute Auto 4000 /uL (1500-7000); Neutrophils Percent Auto 59.2 % (50-75); Platelet Count 225 X10^3/uL (150-400); Red Blood Cell Count 4.47 X10^6/uL (4.0-5.2); White Blood Cell Count 6.7 X10^3/uL (4.5-11.0)
[2024-02-27 12:08] LABS: INR 1.4 (0.9-1.3); Prothrombin Time 16.6 SECONDS (9.4-12.5)
[2024-02-27 12:10] LABS: PTT Partial Thromboplastin Tim 44 SECONDS (25.1-36.5)
[2024-02-27 12:49] LABS: Bacteria Urine Occasional (0-1); Culture Indicated Urine Cult Not Indicated; RBC Urine 0-1/HPF (0-5/HPF); Squamous Epithelial Cell Urine 0-1 /HPF (0-5/HPF); Urine Volume 10mL (spun); WBC Urine 0-1/HPF (0-5/HPF)
--- NOTE | 2024-02-27 13:22 | ED.GIBLEED ---
HPI - GI Bleed <Mag Leach PA-C - Last Filed: 02/27/24 14:22> General Chief complaint: GI Bleed Stated complaint: Rectal bleeding Time Seen by Provider: 02/27/24 13:21 History of Present Illness HPI Narrative: Patient is a very pleasant 68-year-old female presents to the emergency department today with . Patient was at her potline monitor's office today getting evaluation for atrial fibrillation. And she commented to her potline monitor that on Sunday she had an episode of a gush of bright red blood with bowel movement. On Sunday she had no issues or problems. Then again today with a bowel movement she had another gush of red blood. Her potline monitor suggested that she be seen and evaluated in the emergency room department. Her potline monitor stopped her Eliquis. Patient has a primary care doctor appointment next Sunday. Currently at this time the patient denies chest pain, shortness of breath, weakness, dizziness. She has had no nausea, vomiting or diarrhea. She does not know she has external hemorrhoids. She has had no rectal pain. She has had no abdominal pain or cramping. She has no other further complaints current this time. Patient has been on Eliquis for the past 3 months, recently diagnosed with atrial fibrillation. Related Data Previous Rx's Medication Instructions Recorded rosuvastatin 10 mg tablet 10 mg PO DAILY #90 tabs 05/14/23 apixaban 5 mg tablet (Eliquis) 5 mg PO BID #180 tabs 11/14/23 losartan 100 1 tab PO DAILY #90 tabs 11/14/23 mg-hydrochlorothiazide 12.5 mg tablet diltiazem HCl 60 mg 60 mg PO BID #180 caps 12/21/23 capsule,extended release 12 hr omeprazole 20 mg capsule,delayed 20 mg PO DAILY #90 caps 12/28/23 release Allergies Allergy/AdvReac Type Severity Reaction Status Date / Time Penicillins [PENICILLINS] Allergy Intermediate Hives Verified 02/05/24 10:23 Review of Systems <Mag Leach PA-C - Last Filed: 02/27/24 14:22> Review of Systems Narrative: Negative except as above Gastrointestinal Comments: 2 episodes of bright red blood with bowel movements Sunday and Sunday of this week. No other physical complaints. Patient History <Mag Leach PA-C - Last Filed: 02/27/24 14:22> Medical History Palpitations Bilateral knee pain Hyperlipidemia Hepatitis A GERD (gastroesophageal reflux disease) Impaired vision Arthritis Hypertension Migraines Back problem (~2016) Foot pain (~2005) Carpal tunnel syndrome (~1993) Surgical History Status post cholecystectomy Hx of carpal tunnel repair History of colonoscopy Anesthesia Status post tonsillectomy and adenoidectomy (~1972) Family History Brother Age: 67 Osteoarthritis Brother Age: 66 Arthritis Mother Age: 93 Arthritis Congestive heart failure Heart disease Sister Age: 71 Lupus Gallstones Sister Age: 68 Osteoarthritis Gallstones Father Cancer Social History marital status: household members: spouse occupational status: employed Smoking Status: Never smoker alcohol intake: never substance use type: does not use Smoking Status: Never smoker Substance Use Type: does not use Exam <Mag Leach PA-C - Last Filed: 02/27/24 14:22> Initial Vital Signs Initial Vital Signs: Vital Signs Pulse Rate 73 02/27/24 11:14 Pulse Oximetry 93 02/27/24 11:14 Reviewed Const General: cooperative, healthy appearing, comfortable, well developed, well groomed, No acute distress and No in distress Nutritional Appearance: well nourished and overweight Eyes General: Yes appearance normal, both eyes and all related structures Eyelids: eyelids normal Pupils: PERRL EOM: EOM intact bilaterally Resp Auscultation: clear to auscultation bilaterally, no bronchial breath sounds, no bronchovesicular breath sounds, no crackles, lung sounds not diminished, no rales, no rhonchi and no wheezes Cardio Rate: bradycardic Rhythm: regular rhythm Heart Sounds: S1 normal and S2 normal GI Rectal Exam: visual inspection normal, normal sphincter tone, heme positive stool and hemorrhoids (Several large nonthrombosed external hemorrhoids) Skin General: no rashes or lesions noted, turgor normal and warm Extrem Other: Range of motion, strength, pulses, cap refill preserved in the upper and lower extremities bilaterally. Psych Appearance: grossly normal and well kempt Mental Status: mental status grossly normal Speech and Movement: speech and movement normal Mood: congruent mood Affect: normal affect Attitude: cooperative Thought Process: normal Thought Content: normal Judgment: judgment good <Tamia Yost DO - Last Filed: 02/27/24 18:11> Initial Vital Signs Initial Vital Signs: Vital Signs Pulse Rate 73 02/27/24 11:14 Pulse Oximetry 93 02/27/24 11:14 Course <Mag Leach PA-C - Last Filed: 02/27/24 14:22> Orders Ordered: ED Orders 02/27/24 11:16 EKG-12 Lead Stat 02/27/24 11:19 Complete Blood Count AUTO DIFF Stat PTT Partial Thromboplastin [place] Stat Prothrombin Time INR Stat Type and Screen Stat 02/27/24 12:07 Urine Microscopic Stat 02/27/24 12:27 Comprehensive Metabolic Panel Stat Discontinued Medications Ondansetron HCl (Ondansetron 4 Mg/2 Ml Inj) 4 mg IV NOW PRN PRN Reason: Nausea And Vomiting Last Admin: 02/27/24 11:33 Dose: 4 mg Documented By: JACK Ondansetron HCl (Ondansetron 4 Mg Odt) 4 mg SL NOW PRN PRN Reason: Nausea And Vomiting Pantoprazole Sodium (Pantoprazole 40 Mg Vial) 80 mg IV NOW ONE Stop: 02/27/24 11:17 Last Admin: 02/27/24 11:33 Dose: 80 mg Documented By: JACK Vital Signs Vital signs: Vital Signs - 8 hr 02/27/24 11:14 02/27/24 11:17 02/27/24 11:17 Temperature Pulse Rate 73 64 Respiratory Rate Blood Pressure 160/68 H Pulse Oximetry 93 99 Oxygen Delivery Method 02/27/24 11:18 02/27/24 11:30 02/27/24 11:31 Temperature 98.6 F Pulse Rate 70 60 Respiratory Rate 16 Blood Pressure 160/68 H 128/62 Pulse Oximetry 96 98 Oxygen Delivery Method Room Air 02/27/24 11:31 02/27/24 11:42 02/27/24 11:42 Temperature Pulse Rate 59 L 60 Respiratory Rate Blood Pressure 124/62 Pulse Oximetry 97 97 Oxygen Delivery Method 02/27/24 11:45 02/27/24 11:45 02/27/24 12:00 Temperature Pulse Rate 59 L Respiratory Rate Blood Pressure 116/57 L 121/57 L Pulse Oximetry 98 Oxygen Delivery Method 02/27/24 12:00 02/27/24 12:16 02/27/24 12:16 Temperature Pulse Rate 59 L 60 Respiratory Rate Blood Pressure 140/65 Pulse Oximetry 97 99 Oxygen Delivery Method 02/27/24 12:30 02/27/24 12:30 02/27/24 12:45 Temperature Pulse Rate 59 L 57 L Respiratory Rate Blood Pressure 131/66 Pulse Oximetry 98 97 Oxygen Delivery Method 02/27/24 12:45 02/27/24 13:00 02/27/24 13:00 Temperature Pulse Rate 58 L Respiratory Rate Blood Pressure 138/68 144/73 H Pulse Oximetry 100 Oxygen Delivery Method 02/27/24 13:15 02/27/24 13:15 Temperature Pulse Rate 57 L Respiratory Rate Blood Pressure 144/69 H Pulse Oximetry 99 Oxygen Delivery Method Reviewed <Tamia Yost, - Last Filed: 02/27/24 18:11> Orders Ordered: ED Orders 02/27/24 11:16 EKG-12 Lead Stat 02/27/24 11:19 Complete Blood Count AUTO DIFF Stat PTT Partial Thromboplastin [place] Stat Prothrombin Time INR Stat Type and Screen Stat 02/27/24 12:07 Urine Microscopic Stat 02/27/24 12:27 Comprehensive Metabolic Panel Stat Discontinued Medications Ondansetron HCl (Ondansetron 4 Mg/2 Ml Inj) 4 mg IV NOW PRN PRN Reason: Nausea And Vomiting Last Admin: 02/27/24 11:33 Dose: 4 mg Documented By: JACK Ondansetron HCl (Ondansetron 4 Mg Odt) 4 mg SL NOW PRN PRN Reason: Nausea And Vomiting Pantoprazole Sodium (Pantoprazole 40 Mg Vial) 80 mg IV NOW ONE Stop: 02/27/24 11:17 Last Admin: 02/27/24 11:33 Dose: 80 mg Documented By: JACK Vital Signs Vital signs: Vital Signs - 8 hr 02/27/24 11:14 02/27/24 11:17 02/27/24 11:17 Temperature Pulse Rate 73 64 Respiratory Rate Blood Pressure 160/68 H Pulse Oximetry 93 99 Oxygen Delivery Method 02/27/24 11:18 02/27/24 11:30 02/27/24 11:31 Temperature 98.6 F Pulse Rate 70 60 Respiratory Rate 16 Blood Pressure 160/68 H 128/62 Pulse Oximetry 96 98 Oxygen Delivery Method Room Air 02/27/24 11:31 02/27/24 11:42 02/27/24 11:42 Temperature Pulse Rate 59 L 60 Respiratory Rate Blood Pressure 124/62 Pulse Oximetry 97 97 Oxygen Delivery Method 02/27/24 11:45 02/27/24 11:45 02/27/24 12:00 Temperature Pulse Rate 59 L Respiratory Rate Blood Pressure 116/57 L 121/57 L Pulse Oximetry 98 Oxygen Delivery Method 02/27/24 12:00 02/27/24 12:16 02/27/24 12:16 Temperature Pulse Rate 59 L 60 Respiratory Rate Blood Pressure 140/65 Pulse Oximetry 97 99 Oxygen Delivery Method 02/27/24 12:30 02/27/24 12:30 02/27/24 12:45 Temperature Pulse Rate 59 L 57 L Respiratory Rate Blood Pressure 131/66 Pulse Oximetry 98 97 Oxygen Delivery Method 02/27/24 12:45 02/27/24 13:00 02/27/24 13:00 Temperature Pulse Rate 58 L Respiratory Rate Blood Pressure 138/68 144/73 H Pulse Oximetry 100 Oxygen Delivery Method 02/27/24 13:15 02/27/24 13:15 Temperature Pulse Rate 57 L Respiratory Rate Blood Pressure 144/69 H Pulse Oximetry 99 Oxygen Delivery Method MDM - GI Bleed <Mag Leach PA-C - Last Filed: 02/27/24 14:22> Lab Data 02/27/24 11:19 02/27/24 12:27 Labs: Lab Results 02/27/24 02/27/24 02/27/24 Range/Units 11:19 12:07 12:27 WBC 6.7 (4.5-11.0) X10^3/uL RBC 4.47 (4.0-5.2) X10^6/uL Hgb 13.7 (12.0-16.0) g/dL Hct 39.9 (36-46) % MCV 89.3 (80-100) fL MCH 30.6 (26-34) PG MCHC 34.2 (30-36) % RDW 15.0 H (11.6-14.8) % Plt Count 225 (150-400) X10^3/uL Neut % (Auto) 59.2 (50-75) % Lymph % (Auto) 28.2 (25-40) % [place] % (Auto) 7.9 (3-14) % Eos % (Auto) 3.7 (2-4) % Baso % (Auto) 1.0 (0-2) % Neut # (Auto) 4000 (8208-8047) /uL Lymph # (Auto) 1900 (0593-0809) /uL [place] # (Auto) 500 (0-900) /uL Eos # (Auto) 200 (0-450) /uL Baso # (Auto) 100 (0-100) /uL PT 16.6 H (9.4-12.5) SECONDS INR 1.4 H (0.9-1.3) APTT 44 H (25.1-36.5) SECONDS Sodium 138 (137-145) mmol/L Potassium 4.1 (3.4-5.1) mmol/L Chloride 104 (98-107) mmol/L Carbon Dioxide 27 (22-32) mmol/L BUN 16 (7-17) mg/dL Creatinine 0.83 (0.52-1.04) mg/dL Estimated GFR > 60 (>60) mL/min BUN/Creatinine Ratio 19.3 (6-22) Glucose 95 (80-110) mg/dL Calcium 9.3 (8.4-10.2) mg/dL Total Bilirubin 0.6 (0.2-1.3) mg/dL AST 25 (14-36) IU/L ALT 25 (<35) IU/L Alkaline Phosphatase 107 (38-126) U/L Total Protein 6.1 L (6.3-8.2) g/dL Albumin 3.8 (3.5-5.0) g/dL Globulin 2.3 (1.7-4.1) g/dL Albumin/Globulin Ratio 1.7 (1.0-2.8) Urine RBC 0-1/hpf (0-5/HPF) Urine WBC 0-1/hpf (0-5/HPF) Ur Squamous Epith Cells 0-1 /hpf (0-5/HPF) Urine Bacteria Occasional (0-1) (None) Ur Culture Indicated? Cult not indicated Vol Urine Centrifuged 10ml (spun) Blood Type O Positive Antibody Screen Negative Point of Care Testing Stool Occult Blood Positive Urine Dip Bedside Urine Glucose Negative Bedside Urine Bilirubin - Negative Bedside Urine Ketone - Negative Urine Specific [place] 1.015 Bedside Urine Occult Blood + Bedside Urine pH 6.0 Bedside Urine Protein - Negative Bedside Urine Urobilinogen - Negative Bedside Urine Nitrite - Negative Bedside Urine Leukocytes - Negative Esterase ECG Data Interpretation: [address] [place] [id number] Electrocardiogram Draft Patient: Christy Stallworth MR#: [id number] : 1955 Acct:[id number] Age/Sex: 68 / F Date of Service: 02/27/24 Loc: ED Accession Number: [id number] Procedure: EKG-12 Lead Ordering Provider: Tamia Yost D.O. 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 An appointment today and told the potline monitor she had 2 episodes in the last 2 days upright red bleeding from the rectum with bowel movements. Her potline monitor stopped her Eliquis, suggested that she be seen and evaluated in the emergency department. The patient does not have any physical complaints weakness, dizziness, lightheadedness. She has had no syncope. She does not have any abdominal pain. She has no abdominal cramping. Does not know if she is hemorrhoids. Never had any issues or problems with GI bleeding. IV was established Patient was given IV Protonix and Zofran CBC within normal limits PT and INR within normal limits Type and screen O positive Chemistries within normal limits Differential diagnosis; rectal bleeding, external hemorrhoids, internal hemorrhoids. Patient will continue her medications, her Eliquis has been stopped by her potline monitor. Patient has a follow up appointment next Sunday with her primary care doctor, she will need a referral from her primary care doctor for GI for colonoscopy. Supportive therapy education ED precautions given prior to discharge. <Tamia Yost, DO - Last Filed: 02/27/24 18:11> Lab Data Labs: Lab Results 02/27/24 02/27/24 02/27/24 Range/Units 11:19 12:07 12:27 WBC 6.7 (4.5-11.0) X10^3/uL RBC 4.47 (4.0-5.2) X10^6/uL Hgb 13.7 (12.0-16.0) g/dL Hct 39.9 (36-46) % MCV 89.3 (80-100) fL MCH 30.6 (26-34) PG MCHC 34.2 (30-36) % RDW 15.0 H (11.6-14.8) % Plt Count 225 (150-400) X10^3/uL Neut % (Auto) 59.2 (50-75) % Lymph % (Auto) 28.2 (25-40) % [place] % (Auto) 7.9 (3-14) % Eos % (Auto) 3.7 (2-4) % Baso % (Auto) 1.0 (0-2) % Neut # (Auto) 4000 (6186-0048) /uL Lymph # (Auto) 1900 (6428-0178) /uL [place] # (Auto) 500 (0-900) /uL Eos # (Auto) 200 (0-450) /uL Baso # (Auto) 100 (0-100) /uL PT 16.6 H (9.4-12.5) SECONDS INR 1.4 H (0.9-1.3) APTT 44 H (25.1-36.5) SECONDS Sodium 138 (137-145) mmol/L Potassium 4.1 (3.4-5.1) mmol/L Chloride 104 (98-107) mmol/L Carbon Dioxide 27 (22-32) mmol/L BUN 16 (7-17) mg/dL Creatinine 0.83 (0.52-1.04) mg/dL Estimated GFR > 60 (>60) mL/min BUN/Creatinine Ratio 19.3 (6-22) Glucose 95 (80-110) mg/dL Calcium 9.3 (8.4-10.2) mg/dL Total Bilirubin 0.6 (0.2-1.3) mg/dL AST 25 (14-36) IU/L ALT 25 (<35) IU/L Alkaline Phosphatase 107 (38-126) U/L Total Protein 6.1 L (6.3-8.2) g/dL Albumin 3.8 (3.5-5.0) g/dL Globulin 2.3 (1.7-4.1) g/dL Albumin/Globulin Ratio 1.7 (1.0-2.8) Urine RBC 0-1/hpf (0-5/HPF) Urine WBC 0-1/hpf (0-5/HPF) Ur Squamous Epith Cells 0-1 /hpf (0-5/HPF) Urine Bacteria Occasional (0-1) (None) Ur Culture Indicated? Cult not indicated Vol Urine Centrifuged 10ml (spun) Blood Type O Positive Antibody Screen Negative Point of Care Testing Stool Occult Blood Positive Urine Dip Bedside Urine Glucose Negative Bedside Urine Bilirubin - Negative Bedside Urine Ketone - Negative Urine Specific [place] 1.015 Bedside Urine Occult Blood + Bedside Urine pH 6.0 Bedside Urine Protein - Negative Bedside Urine Urobilinogen - Negative Bedside Urine Nitrite - Negative Bedside Urine Leukocytes - Negative Esterase Discharge Plan Departure Patient Disposition: Home Clinical Impression: RB (rectal bleeding), External hemorrhoids Instructions: Gastrointestinal Bleeding Activity Restrictions/Additional Instructions: Your lab work is all within normal limits, your H&H does not show any signs or symptoms of anemia. Your electrolytes all within normal limits. Please continue all your home medications. Please make an appointment with your primary care doctor for follow-up. Return to the emergency department as needed. Your potline monitor has already stopped Eliquis, continue all other medications. Please follow-up with your primary care doctor and discuss the symptoms he had, most likely he will want to refer you to GI for a colonoscopy. Her Hemoccult here in the emergency department with mildly positive for blood. You do have several large external hemorrhoids on exam. Prescriptions: No Action diltiazem HCl 60 mg capsule,extended release 12 hr 60 mg PO BID Qty: 180 1RF omeprazole 20 mg capsule,delayed release(DR/EC) 20 mg PO DAILY Qty: 90 3RF rosuvastatin 10 mg tablet 10 mg PO DAILY Qty: 90 3RF Eliquis 5 mg tablet 5 mg PO BID Qty: 180 3RF losartan-hydrochlorothiazide 100-12.5 mg tablet 1 tab PO DAILY Qty: 90 3RF Referrals: Fazal Negrete MD [Primary Care Provider] - Stand Alone Forms: Patient Portal/API ED Sign-out <Tamia Yost DO - Last Filed: 02/27/24 18:11> Cosign ED Attending Cosstephature Attestation: I was immediately available in the department for consultation. Labs reviewed, EKG shows sinus bradycardia rate of 58 ND 172 QRS is 78 QTC 437.
[2024-02-27 14:08] LABS: Alanine Aminotransferase 25 IU/L (<35); Albumin 3.8 g/dL (3.5-5.0); Albumin Globulin Ratio 1.7 (1.0-2.8); Alkaline Phosphatase 107 U/L (38-126); Aspartate Aminotransferase 25 IU/L (14-36); BUN Creatinine Ratio 19.3 (6-22); Bilirubin Total 0.6 mg/dL (0.2-1.3); Blood Urea Nitrogen 16 mg/dL (7-17); Calcium 9.3 mg/dL (8.4-10.2); Carbon Dioxide 27 mmol/L (22-32); Chloride 104 mmol/L (98-107); Estimated Glomerular Filt Rate > 60 mL/min (>60); Globulin 2.3 g/dL (1.7-4.1); Glucose 95 mg/dL (80-110); HEMOLYSIS < 15 (0-50); Potassium 4.1 mmol/L (3.4-5.1); Sodium 138 mmol/L (137-145); Total Protein 6.1 g/dL (6.3-8.2)
== END 2024-02-27 14:21 | disposition home or self-care (01) ==
PROVIDERS: Emergency Medicine; Emergency Provider Physician Assistant; PCP Family Medicine
DX: K62.5 Hemorrhage of anus and rectum (principal); K64.4 Residual hemorrhoidal skin tags; R00.1 Bradycardia, unspecified; I48.91 Unspecified atrial fibrillation; Z79.01 Long term (current) use of anticoagulants
CPT/HCPCS: 36415; 80053; 81003; 81015; 82272; 85025; 85610; 85730; 86850; 86900; 86901; 93005; 96374; 96375; 99284; J2405; J2470

== ENCOUNTER → 2024-02-29 07:43 | Outpatient (CLI) | payer MEDICARE, SELFPAY ==
[2024-02-29 08:59] LABS: Add Manual Diff / Slide Review NO; Basophils Absolute Auto 0 /uL (0-100); Basophils Percent Auto 0.5 % (0-2); Eosinophils Absolute Auto 200 /uL (0-450); Eosinophils Percent Auto 3.5 % (2-4); Hematocrit 39.9 % (36-46); Hemoglobin 13.5 g/dL (12.0-16.0); Lymphocytes Absolute Auto 1700 /uL (1100-4500); Lymphocytes Percent Auto 27.3 % (25-40); Mean Corpuscular HGB Conc 33.9 % (30-36); Mean Corpuscular Hemoglobin 30.4 PG (26-34); Mean Corpuscular Volume 89.7 fL (80-100); Monocytes Absolute Auto 600 /uL (0-900); Neutrophils Absolute Auto 3700 /uL (1500-7000); Neutrophils Percent Auto 59.7 % (50-75); Platelet Count 221 X10^3/uL (150-400); Red Blood Cell Count 4.44 X10^6/uL (4.0-5.2); Red Cell Distribution Width 14.8 % (11.6-14.8); White Blood Cell Count 6.1 X10^3/uL (4.5-11.0)
[2024-02-29 09:21] LABS: Alanine Aminotransferase 25 IU/L (<35); Albumin 3.9 g/dL (3.5-5.0); Albumin Globulin Ratio 1.4 (1.0-2.8); Alkaline Phosphatase 107 U/L (38-126); Aspartate Aminotransferase 25 IU/L (14-36); BUN Creatinine Ratio 18.5 (6-22); Bilirubin Total 0.8 mg/dL (0.2-1.3); Blood Urea Nitrogen 17 mg/dL (7-17); Calcium 9.6 mg/dL (8.4-10.2); Carbon Dioxide 29 mmol/L (22-32); Chloride 103 mmol/L (98-107); Estimated Glomerular Filt Rate > 60 mL/min (>60); Globulin 2.7 g/dL (1.7-4.1); Glucose 96 mg/dL (80-110); HEMOLYSIS < 15 (0-50); Potassium 4.2 mmol/L (3.4-5.1); Sodium 136 mmol/L (137-145); Total Protein 6.6 g/dL (6.3-8.2)
[2024-02-29 09:43] LABS: Free T4, Direct Thyroxine 1.24 ng/dL (0.78-2.19)
[2024-02-29 09:55] LABS: Thyroid Stimulating Hormone 2.14 uIU/mL (0.47-4.68)
== END ==
PROVIDERS: PCP Family Medicine; Referring Provider Internal Medicine Cardiovascular Disease; Visit Provider Internal Medicine Cardiovascular Disease
DX: K62.5 Hemorrhage of anus and rectum (principal); E78.5 Hyperlipidemia, unspecified
CPT/HCPCS: 36415; 80053; 84439; 84443; 85025

== ENCOUNTER 2024-03-28 10:06 | Day surgery (SDC) | payer MEDICARE, SELFPAY ==
--- NOTE | 2024-03-28 | PATH_ITS ---
[facility] Accession Number: [id number] No. of containers..01 Tissue . 01 Material submitted: . colon - DESCENDING POLYP . 01 Diagnosis: Colon, descending, polyp biopsy: Tubular adenoma TXN 04/02/2024 1217 Local . 01 Electronically signed: . Samuel Ventura MD, Pathologist NPI- [id number] . 01 Gross description: . DESCENDING POLYP : Received in formalin is 1 fragment(s) of zuniga, soft tissue measuring 0.6 x 0.5 x 0.4 cm submitted entirely in 1 cassette(s) /JERRY 03/31/2024 1841 Local . 01 Pathologist provided ICD-10: D12.6 . 01 CPT . 113228 Performed at: [address] [id number] MD Chirag Kim MD Phone: [phone]
[2024-03-28 10:43] VITALS: BP 170/79; PULSE 60; RESP 20; TEMP 36.1; O2SAT 98
--- NOTE | 2024-03-28 11:59 | PM.PREOP ---
Pre-operative Note COVID-19 COVID-19 status: Not tested Interval Note History & Physical reviewed/Exam performed by Physician: Yes Changes to H&P: No ASA Class (for procedural sedation): II
[2024-03-28 12:27] VITALS: BP 99/67; PULSE 65; RESP 21; TEMP 36.2; O2SAT 94
[2024-03-28 12:32] VITALS: BP 118/71; PULSE 66; RESP 22; O2SAT 96
--- NOTE | 2024-03-28 12:33 | PM.OP.COLON ---
Operative Date/Time/Diagnoses Date of procedure: 03/28/24 Time of procedure: 12:33 Pre-op diagnosis: Rectal bleeding Post-op diagnosis: same Procedure & Clinicians Study performed: Colonoscopy Same procedure as scheduled: Yes Surgeon: Darian Lang Procedure Notes Procedure in detail: Surgeon: Darian Lang MD Anesthesia: Tory Briones CRNA Procedure: The patient was brought to the endoscopy suite, placed in left lateral decubitus position. The patient was connected to monitoring devices. A time-out was performed. Sedation was administered. Once the patient was adequately sedated, a digital rectal exam was performed and was normal. The scope was then inserted and advanced to the cecum where the appendiceal orifice was identified and photographed. The scope was then slowly withdrawn over greater than 6 minutes. The mucosa was thoroughly inspected. There was a 7 mm polyp in the descending colon removed with a cold snare. There was pandiverticulosis. The scope was retroflexed in the rectum. No other abnormalities were identified. The scope was straightened and removed. The patient was awakened and brought to recovery. Scope withdrawal time: 9 minutes Sedation time: 17 minutes EBL: 2 mL Findings: 7 mm descending colon polyp and pandiverticulosis Post-procedure Disposition: PACU
[2024-03-28 12:37] VITALS: BP 129/71; PULSE 60; RESP 17; O2SAT 95
[2024-03-28 12:43] VITALS: BP 144/79; PULSE 57; RESP 21; TEMP 36.6; O2SAT 94
[2024-03-28 12:46] VITALS: BP 151/80; PULSE 56; RESP 19; TEMP 36.2; O2SAT 94
== END 2024-03-28 13:09 | disposition home or self-care (01) ==
PROVIDERS: PCP Family Medicine; Referring Provider Surgery; Visit Provider Surgery
PROC: 0DJD8ZZ Inspection of Lower Intestinal Tract, Via Natural or Artificial Opening Endoscopic (ICD-10-PCS; CPT 45378; principal; 2024-03-28 11:45)
DX: K62.5 Hemorrhage of anus and rectum (principal); K57.30 Diverticulosis of large intestine without perforation or abscess without bleeding; D12.4 Benign neoplasm of descending colon
CPT/HCPCS: 45385; J2704

== ENCOUNTER → 2024-08-22 08:08 | Outpatient (CLI) | payer MEDICARE, SELFPAY ==
--- NOTE | 2024-08-22 08:10 | DI.MG.S_ITS ---
MM screening mammo BI: 08/22/2024. BI-RADS: 2 CLINICAL: 69-year old female for bilateral screening mammogram. Tyrer-Cuzick lifetime risk of 3.9%. No personal or first-degree family history of breast cancer. PRIOR EXAMS 08/02/2023, 08/21/2022, 07/31/2022, 07/28/2021, 06/24/2020. MAMMOGRAPHY TECHNIQUE: 2D and 3D (tomosynthesis) digital mammographic views obtained, with additional images as needed for full coverage. Current study was also evaluated with a Computer Aided Detection (CAD) system. DENSITY C. The breasts are heterogeneously dense, which may obscure small masses. MAMMOGRAPHY FINDINGS Bilateral: Benign-appearing calcifications noted. There are no suspicious masses, calcifications, or other findings in the breast. No significant change from comparison. IMPRESSION: * No evidence of malignancy with benign findings. RECOMMENDATIONS Bilateral * Annual screening mammography. OVERALL ASSESSMENT CATEGORY BI-RADS-2: Benign. [employer] recommends annual screening mammography beginning at age 40 for women with average risk of breast cancer. ELECTRONICALLY SIGNED: Citlali Brice M.D. on 08/22/2024 at 01:05:45 PM PT Interpreting Station ID: [id number]
== END ==
PROVIDERS: PCP Family Medicine; Referring Provider Family Medicine; Visit Provider Family Medicine
DX: Z12.31 Encounter for screening mammogram for malignant neoplasm of breast (principal); R92.333 Mammographic heterogeneous density, bilateral breasts; R92.1 Mammographic calcification found on diagnostic imaging of breast
CPT/HCPCS: 77063; 77067

== ENCOUNTER → 2024-12-19 07:33 | Outpatient (CLI) | payer MEDICARE, SELFPAY ==
[2024-12-19 08:56] LABS: Add Manual Diff / Slide Review NO; Hematocrit 40.2 % (36-46); Hemoglobin 13.8 g/dL (12.0-16.0); Lymphocytes Absolute Auto 1300 /uL (1100-4500); Mean Corpuscular HGB Conc 34.4 % (30-36); Mean Corpuscular Hemoglobin 30.7 PG (26-34); Mean Corpuscular Volume 89.3 fL (80-100); Platelet Count 225 X10^3/uL (150-400)
[2024-12-19 09:28] LABS: Alanine Aminotransferase 23 IU/L (<35); Albumin 4.0 g/dL (3.5-5.0); Albumin Globulin Ratio 1.5 (1.0-2.8); Alkaline Phosphatase 96 U/L (38-126); Blood Urea Nitrogen 14 mg/dL (7-17); Calcium 9.2 mg/dL (8.4-10.2); Carbon Dioxide 29 mmol/L (22-32); Chloride 104 mmol/L (98-107); Cholesterol 240 mg/dL (140-199); Estimated Glomerular Filt Rate > 60 mL/min (>60); Globulin 2.6 g/dL (1.7-4.1); Glucose 88 mg/dL (70-99); HDL Cholesterol 42 mg/dL (40-60); HEMOLYSIS < 15 (0-50); Potassium 4.7 mmol/L (3.4-5.1); Sodium 138 mmol/L (137-145); Total Protein 6.6 g/dL (6.3-8.2); Triglycerides 164 mg/dL (35-150)
[2024-12-19 10:03] LABS: TSH w/ Reflex to FT4 1.60 uIU/mL (0.47-4.68)
== END ==
PROVIDERS: PCP Family Medicine; Referring Provider Family Medicine; Visit Provider Family Medicine
DX: Z00.00 Encounter for general adult medical examination without abnormal findings (principal); I48.91 Unspecified atrial fibrillation; E78.2 Mixed hyperlipidemia; I48.92 Unspecified atrial flutter; I10 Essential (primary) hypertension; I48.0 Paroxysmal atrial fibrillation
CPT/HCPCS: 36415; 80053; 80061; 82043; 82570; 84443; 85025